=== PATIENT | male | born 1945 | race Caucasian/White ===

== ENCOUNTER 2023-08-10 15:12 | Inpatient (IN) | payer MEDICARE, OTHER, SELFPAY ==
[2023-08-10] VITALS (9 sets, daily range): BP systolic 120–182; BP diastolic 87–110; BMI 28.0; BMI 27.4
[2023-08-10 11:27] LABS: % Basophils 0.9 % (0-2); % Eosinophils 2.7 % (0-6); % Immature Granulocytes 0.2 % (0-0.5); % Lymphocytes 22.4 % (20.5-51.1); % Monocytes 7.3 % (1.7-9.3); % Neutrophils 66.5 % (42.2-75.2); Absolute Basophils 0.1 10^3/uL (0-0.2); Absolute Eosinophils 0.2 10^3/uL (0-0.7); Absolute Lymphocytes 1.3 10^3/uL (1.2-3.4); Absolute Monocytes 0.4 10^3/uL (0.1-0.6); Absolute Neutrophils 3.9 10^3/uL (1.4-6.5); Hemoglobin 13.3 g/dL (13.0-18.0); Mean Corp Hgb Conc. 34.1 g/dL (33.0-37.0); Mean Corpuscular Hgb 28.8 pg (27.0-31.0); Mean Corpuscular Volume 84.4 fL (80.0-94.0); Nucleated Red Blood Cells % 0 % (-); Platelet Count 178 10^3/uL (130-400); Red Blood Cell Count 4.62 10^6/uL (4.70-6.10); Red Cell Dist. Width 13.3 % (11.5-14.5); White Blood Cell Count 5.9 10^3/uL (4.8-10.8)
--- NOTE | 2023-08-10 11:30 | ED.CVA ---
History of Present Illness
General
Chief Complaint: CVA/TIA Symptoms
Source: patient and spouse
Exam Limitations: none
Time Seen by Provider: 08/10/23 11:11
Nursing documentation reviewed up to this point in time: agreed with
Onset of Stroke Symptoms
Onset of symptoms known: No
Time pt last seen normal is known: No
Travel History
Have you had any contact with someone who has COVID-19?: No
Do you have any symptoms of coronavirus? Fever > 100 degrees, chills, cough, shortness of breath, sore throat, loss of taste or smell, muscle aches, or headache?: No
History of Present Illness
History of Present Illness:
Patient is a 77-year-old male with past medical history of CVA A-fib pacemaker on Xarelto presents to the ER for evaluation. Patient reports this morning he was having trouble using his cell phone. He was trying to use a counter section cannot
remember how to do so.He called his due to feeling confused. He had no associated headache and denies any associated upper or lower extremity numbness tingling weakness in extremities.
reports the patient has not been himself. She reports 2 nights ago he woke up in the middle of the night and was yelling, very angry.She also has noticed that over the past several months he is having difficulty processing certain things. If
she gives him a sentence or 2 he will often ask for her to repeat it seems difficulty processing what she is telling him to do. In May she notes that his dentist thought he may be jaundiced. Since then he has been seen by family doctor as
well as GI. He had nml US of abdomen.
Past History
Past History
ED Past Medical History: Arrthythmia (Atrial fibrillation), CAD, CVA, GERD, HTN, Hypercholesterolemia, OR and Hypothyroidism
ED Past Surgical History: Orthopedic and Other (Hernia surgery, lipoma of the neck removed< left leg IR procedure Jun)
Social History
Tobacco: Non-smoker
Alcohol: Occasional
Drug: None
Personal:
Living: with family
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
Family History
Family History: Other (n/c)
Review of Systems
Review of Systems
Allergies reviewed?: Yes
All Other Systems: ROS reviewed and negative except as documented in HPI and ROS
Constitutional: Reports no symptoms; Denies fever, fatigue or chills
Respiratory: Reports no symptoms
Cardiac: Reports no symptoms
ABD/GI: Reports no symptoms
Musculoskeletal: Reports no symptoms
Skin: Reports no symptoms
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
Endocrine: Reports no symptoms
Hematologic/Lymphatic: Reports no symptoms
Psychiatric: Reports no symptoms
Phy Exam
General Physical Exam
General Presentation: no apparent distress
General age: appears stated age
General Skin: warm and dry
General Habitus: normal
Course
Orders/Labs/Results
Orders:
Orders
08/10/23 11:14
Electrocardiogram (*1) Urgent
Reason for Study: TIA/Stroke
08/10/23 11:15
EKG- Treatment ONCE
08/10/23 11:16
Complete Blood Count/With Diff Urgent
Comprehensive Metabolic Panel Urgent
Digoxin Urgent
Comment: ADD ON
Troponin I Urgent
08/10/23 11:44
CT Head W/o Iv Contrast Urgent
Comment:
Reason For Exam: acute confusion episode
08/10/23 11:54
Add On- LAB Urgent
Tests Added?: digoxin
08/10/23 14:10
MR Brain W/o & With Contrast Routine
Comment: Tumor or subacute stroke
Reason For Exam: Right frontal and parietal lobe hypodensities
Recent pill cam endoscopy?: No
Abnormal Lab Results
08/10/23
11:16
RBC 4.62 L 10^6/uL
(4.70-6.10)
MPV 11.0 H fL
(7.4-10.4)
Carbon Dioxide 31 H mmol/L
(22-30)
Glucose 103 H mg/dl
(70-99)
Total Bilirubin 2.0 H mg/dl
(0.2-1.3)
Digoxin 0.7 L ng/ml
(0.8-2.0)
08/10/23 11:16
08/10/23 11:16
Vital Signs
Initial and Last Documented VS:
Initial Vital Signs
Temp Pulse Resp BP Pulse Ox
98.4 F 78 16 174/110 99
08/10/23 10:55 08/10/23 10:55 08/10/23 10:55 08/10/23 10:55 08/10/23 10:55
Last Documented Vital Signs
Temp Pulse Resp BP Pulse Ox
98.4 F 66 14 165/98 99
08/10/23 10:55 08/10/23 13:15 08/10/23 13:15 08/10/23 12:17 08/10/23 13:15
MDM/Problems Addressed
Differential Diagnosis Includes:
not limited to: Stroke, cognitive
MDM/Problems Addressed:
Patient is a 77 old male brought to the ER by . Patient reports this morning he was confused while working his cell phone was unable to figure out how to work certain things. also reports that patient 2 nights ago had an episode of
yelling in the middle of the night that was not like off. He also has had intermittent episodes of having difficulty processing things. He does have a history of stroke. He presents awake alert he is oriented. He was aware of his confusion
earlier today. Patient is a known patient of neurology Dr. Rodriguez who evaluated patient here in the ER. We did get CAT scan and CAT scan surprisingly shows new areas of white matter hypoattenuation/edema within the frontal right lobe and parietal
lobe could be subacute infarct with vasogenic edema related to metastatic disease. pt with no history of cancer.
Chronic conditions affecting care:
A-fib pacemaker on Eliquis history of stroke hypertension OR
*Radiology
Radiology exam reviewed: radiology read reviewed
*Pulse Oximetry
Patient hypoxic: no
*EKG
Heart Rate: 61
Rate: normal
Rhythm: a-fib
Ischemia: no ischemia
*Critical Care Note
Total Time (30-74mins, 75-104mins- exclusive of procedures): Not Applicable
Patient Management
Discussion with other providers: Applique Cutter (DR Rodriguez in to see pt )
ED Attending Note
-
Portions of this chart may have been created with voice recognition software.� Occasional wrong word or��sound alike� substitutions may have occurred due to the inherent limitations of voice recognition software.
Discharge Plan
Departure
Patient Disposition: Admit
Date of Disposition: 08/10/23
Time of Disposition: 14:22
Admit to: Med/Surg
Admit to doctor: Ted
Presentation/result/management discussed w/ accepting MD/DO: Hospitalist
Patient with high blood pressure during this ER visit?: Yes
Condition: Fair
Covid-19: Not Applicable
Discharge Problem:
Confusion
Prescriptions:
No Action
levothyroxine 150 MCG tablet
175 mcg PO DAILY AT 0700
atorvastatin 20 MG tablet
20 mg PO HS
pantoprazole 40 MG tablet,delayed release (/EC)
40 mg PO DAILY
lisinopril 10 MG tablet
40 mg PO DAILY
finasteride 5 MG tablet
5 mg PO DAILY
cholecalciferol (vitamin D3) 2,000 UNITS tablet
2,000 units PO HS
Bifidobacterium infantis [Align] 4 MG capsule
4 mg PO DAILY
rivaroxaban [Xarelto] 20 MG tablet
20 mg PO HS
doxazosin 1 MG tablet
1 mg PO HS
sotalol 80 MG tablet
80 mg PO BID
fluticasone furoate-vilanterol [Breo Ellipta] 1 EACH blister with device
1 puff inhalation DAILY
vit C-vit L-Ry-Vi-lutein-zeax [ICaps AREDS2 (copper citrate)] 1 EACH tablet
1 ea PO BID
amlodipine [Norvasc] 5 MG tablet
5 mg PO BID
cyanocobalamin (vitamin B-12) 2,500 MCG tablet,chewable
2,500 mcg PO DAILY Qty: 30 0RF
Referrals:
Kiran Valderrama DO [Family Provider] -
Interventions
Interventions:
*Risk Screen - Suicide Last Done: 08/10/23 10:55
*General Assessment Last Done: 08/10/23 10:55
*Neglect/Abuse Screening Last Done: 08/10/23 10:55
ED- Fall Risk Assessment Last Done: 08/10/23 11:22
*ED COVID-19 Vaccine History Last Done: 08/10/23 10:55
ED- Pulmonary Assessment Last Done: 08/10/23 11:19
ED- Neurological Assessment Last Done: 08/10/23 11:19
ED- Cardiac Assessment Last Done: 08/10/23 11:19
[2023-08-10 11:39] LABS: ALT (SGPT) 21 U/L (0-50); AST (SGOT) 31 U/L (17-59); Albumin 4.4 g/dl (3.5-5.0); Alkaline Phosphatase 77 U/L (38-126); Blood Urea Nitrogen 20 mg/dl (9-20); Calcium 9.5 mg/dl (8.4-10.2); Carbon Dioxide 31 mmol/L (22-30); Chloride 101 mmol/L (98-107); Estimated Creatinine Clearance 71 ml/min; Glucose 103 mg/dl (70-99); Potassium 3.6 mmol/L (3.5-5.1); Sodium 139 mmol/L (135-145); Total Protein 6.9 g/dl (6.3-8.2); eGFR > 60.00
[2023-08-10 11:48] LABS: Troponin I 0.015 ng/ml
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
[2023-08-10 12:29] LABS: Digoxin 0.7 ng/ml (0.8-2.0)
--- NOTE | 2023-08-10 14:51 | HPS.HSE ---
Family Physician
-
Family Physician: Kiran Valderrama
Chief Complaint
-
Confusion
History of Present Illness
77-year-old male with past medical history of atrial fibrillation, embolic stroke, hyperlipidemia, hypothyroidism, GERD, chronic headache, BPH came to the hospital with increasing confusion and difficulty operating task that he used to before. Per
at bedside patient also had some odd behavior with agitation couple nights ago. Patient denies any chest pain, shortness of breath. Denies any abdominal pain, nausea, vomiting, diarrhea, constipation. Patient does have history of headache
however now it appears the frequency is a lot more however lately from past few days it is getting better. Denies any fever/chills. Reports compliance with all his medications.
Medical History
Past Medical History
Past Medical History: Reports Arrhythmia (A-fib), CAD, GERD, HTN, Hypercholesterolemia and Hypothyroidism
Past Surgical History: Reports Orthopedic and Other (Hernia surgery)
Social History
Tobacco: Non-smoker
Alcohol: None
Drug: None
Family History
Family History: Not pertinent
Allergies / Home Medications
Allergies reflects when Allergies were last updated in [facility].
Home Medications with original date entered in [facility]
Allergy/Medication List:
Allergies
Allergy/AdvReac Type Severity Reaction Status Date / Time
adhesive tape Allergy Rash Verified 08/10/23 10:56
Home Medications
finasteride 5 mg tablet 5 mg PO HS Urinary issue 06/13/19
pantoprazole 40 mg tablet,delayed release 40 mg PO DAILY Gastrointestinal issue 06/13/19
rivaroxaban 20 mg tablet (Xarelto) 20 mg PO QPM Blood clot prevention/tx 12/19/19
acetaminophen 500 mg tablet (Tylenol Extra Strength) 1,000 mg PO DAILYPRN PRN mild pain 08/10/23
atorvastatin 40 mg tablet 40 mg PO HS 08/10/23
cholecalciferol (vitamin D3) 50 mcg (2,000 unit) tablet 50 mcg PO DAILY 08/10/23
cyanocobalamin (vitamin B-12) 1 tab PO HS 08/10/23
digoxin 125 mcg (0.125 mg) tablet 125 mcg PO DAILY 08/10/23
furosemide 20 mg tablet 20 mg PO DAILY 08/10/23
levothyroxine 200 mcg tablet 200 mcg PO DAILY 08/10/23
lisinopril 40 mg tablet 40 mg PO DAILY 08/10/23
metoprolol succinate 50 mg tablet,extended release 24 hr 50 mg PO BID 08/10/23
mupirocin 2 % topical ointment 1 applic topical BID apply to forehead 08/10/23
peg 400-propylene glycol (PF) 0.4 %-0.3 % eye drops in a dropperette (Systane (PF)) 1 drp BOTH EYES BIDPRN PRN dry eyes 08/10/23
rimegepant 75 mg disintegrating tablet (Nurtec ODT) 75 mg PO DAILYPRN PRN migraine 08/10/23
tamsulosin 0.4 mg capsule 0.4 mg PO HS 08/10/23
vit C 250 mg-vit E 90 mg-zinc 40 mg-copper 1 [id number] capsule (PreserVision AREDS-2) 1 tab PO BID 08/10/23
Review of Systems
-
History Source: Patient
A 12 point ROS was completed and negative except as noted: Yes
Neurological: Reports Headache
Physical Exam
Vital Signs
Vital Signs
Temp Pulse Resp BP Pulse Ox
98.4 F 66 14 165/98 99
08/10/23 10:55 08/10/23 13:15 08/10/23 13:15 08/10/23 12:17 08/10/23 13:15
Physical Exam
General: Well Nourished and No Apparent Distress
HEENT: Anicteric and Moist mucous membranes
Respiratory: Clear; No Wheezes
Cardiac: S1/S2 and Irregular Rhythm
Breast: Deferred by me
GI: Soft, Non Tender and Non Distended
Rectal: Deferred by Provider
Genito-urinary: Deferred by me
Musculoskeletal: No Edema
Neuro: Awake, Alert, Oriented and AO x 3
Psych: Calm and Intact Judgment/Insight
Laboratory Results
-
08/10/23 11:16
08/10/23 11:16
Laboratory Results
Total Bilirubin 2.0 mg/dl (0.2-1.3) H 08/10/23 11:16
AST 31 U/L (17-59) 08/10/23 11:16
ALT 21 U/L (0-50) 08/10/23 11:16
Alkaline Phosphatase 77 U/L (38-126) 08/10/23 11:16
Troponin I 0.015 ng/ml 08/10/23 11:16
Data Reviewed
-
CT Scan: Report Reviewed by me, Discussed with Patient and Discussed with Family
Lab Data: Labs Reviewed by me, Discussed with Patient and Discussed with Family
Impression/Plan
-
Confusion likely secondary to subacute CVA with vasogenic edema, concern for malignancy
CT noted
MRI pending
Neurology following
no hx of malignancy; per patient he is good with his cancer screening
check lipid profile,A1c
speech,PT/OT
cw neuro checks
goal normotension
History of paroxysmal A-fib
Continue metoprolol, digoxin
Xarelto
History of hypertension
Continue lisinopril, metoprolol
Hydralazine as needed
History of GERD
PPI
Multiple small lung nodules on past CT scan
f/u outpatient
History of hypothyroidism
Continue with Synthroid
History of BPH
Continue with tamsulosin
DVT prophylaxis
Xarelto
Full code
[2023-08-10] MEDS: XARELTO 20 MG PO (18:06)
--- NOTE | 2023-08-10 19:47 | PTCARENOTE ---
1720 Pt received from the ED via stretcher [id number]. Pt accompanied by son and ED staff. Pt ambulated from stretcher to standing scale with steady gait. Pt oriented to staff and environment. Personal items and call light within reach. All needs
met.
[2023-08-10] MEDS: PROSCAR 5 MG PO (20:33)
[2023-08-10] MEDS: VITAMIN B-12 1000 MCG PO (20:33)
[2023-08-10] MEDS: LIPITOR 40 MG PO (20:33)
[2023-08-10] MEDS: OCUVITE SOFTGEL 1 CAP PO (20:33)
[2023-08-10] MEDS: TOPROL XL 50 MG PO (20:33)
[2023-08-10] MEDS: FLOMAX 0.400000000000000022 MG PO (20:34)
[2023-08-10] MEDS: MELATONIN 5 MG PO (21:15)
[2023-08-11] VITALS (7 sets, daily range): BP systolic 143–168; BP diastolic 75–103
[2023-08-11] MEDS: SYNTHROID 200 MCG PO (05:46)
[2023-08-11] MEDS: TYLENOL 1000 MG PO (06:18)
[2023-08-11 06:27] LABS: % Basophils 0.7 % (0-2); % Eosinophils 3.6 % (0-6); % Immature Granulocytes 0.4 % (0-0.5); % Lymphocytes 30.8 % (20.5-51.1); % Monocytes 8.7 % (1.7-9.3); % Neutrophils 55.8 % (42.2-75.2); Absolute Eosinophils 0.2 10^3/uL (0-0.7); Absolute Lymphocytes 1.7 10^3/uL (1.2-3.4); Absolute Monocytes 0.5 10^3/uL (0.1-0.6); Absolute Neutrophils 3.1 10^3/uL (1.4-6.5); Hematocrit 35.7 % (39.0-52.0); Hemoglobin 12.3 g/dL (13.0-18.0); Mean Corp Hgb Conc. 34.5 g/dL (33.0-37.0); Mean Corpuscular Hgb 29.1 pg (27.0-31.0); Mean Corpuscular Volume 84.4 fL (80.0-94.0); Nucleated Red Blood Cells % 0 % (-); Platelet Count 160 10^3/uL (130-400); Red Blood Cell Count 4.23 10^6/uL (4.70-6.10); Red Cell Dist. Width 13.2 % (11.5-14.5); White Blood Cell Count 5.5 10^3/uL (4.8-10.8)
[2023-08-11 06:47] LABS: ALT (SGPT) 18 U/L (0-50); AST (SGOT) 27 U/L (17-59); Albumin 3.6 g/dl (3.5-5.0); Alkaline Phosphatase 70 U/L (38-126); Blood Urea Nitrogen 19 mg/dl (9-20); Calcium 9.7 mg/dl (8.4-10.2); Carbon Dioxide 32 mmol/L (22-30); Chloride 101 mmol/L (98-107); Estimated Creatinine Clearance 79 ml/min; Glucose 109 mg/dl (70-99); HDL Cholesterol 27 mg/dl; LDL Cholesterol, Calculated 35 mg/dl; Potassium 3.7 mmol/L (3.5-5.1); Sodium 141 mmol/L (135-145); Total Cholesterol 79 mg/dl (50-199); Total Protein 6.2 g/dl (6.3-8.2); Triglyceride 89 mg/dl (10-149); Very Low Density Lipoprotein 17 mg/dl (0-30); eGFR > 60.00
--- NOTE | 2023-08-11 08:19 | W.PN.NEURO.1 ---
Addendum entered and electronically signed by Ricardo Rodriguez MD 08/11/23 14:29:
Reviewed the MRI MRI images as well as the report.
There are hyperintensities on T2 and FLAIR more in the white matter on the right frontal lobe right parietal lobe as well as to a lesser extent the left parietal lobe. There is hyperintensity on DWI and ADC. Small amount of chronic microhemorrhage
in the right frontal lobe and the right parietal lobe slightly increased burden compared to previous MRI in February 2023. There is no abnormal contrast-enhancement or discrete masses or obvious neoplasm seen.
No narrowing, stenosis or abnormal beading of the MRA of the head and normal vessels on the MRA of the neck.
Imaging findings are not consistent with ischemic stroke and unlikely to be neoplastic process.
Patient has had elevated blood pressure but these have not been severe and the distribution of imaging abnormalities lead me to believe that this is less likely to be PRES.
Assessment
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 He has had chronic headaches for several months now and now with some mild behavioral changes
which would be common manifestations of the disorder. Previous ESR testing was negative, patient has no history of cancer and is a non-smoker, and does not have any other obvious manifestations of an autoimmune disease such as rheumatologic disease
or vasculitis.
Recommendations
-Hold Xarelto anticipating will need to be off the medication for 48 hours before pursuing lumbar puncture
-With lumbar puncture check CSF protein cell count glucose, Gram stain culture, PCR meningitis/encephalitis panel
-Check CT chest abdomen pelvis with contrast, unless there is an abnormality on the study which appears extremely convincing for neoplasm, I would operate on the assumption that this is not a neoplastic process in the brain
-If lumbar puncture not suggestive of infection plan for 5 days of high dose steroid, 1000 mg methylprednisolone q24 hours and then 50-60 mg Prednisone daily afterwards
-Discussed with patient that after discharge would recommend evaluation by additional vascular neurologist at [facility] for 2nd opinion given complexity and rarity of the suspected disease
-Treating high blood pressure
-Neurologic checks
Discussed with Dr Jean, discussed with patient and his the suspected diagnosis, next steps and answered all questions
Original Note:
Today's Communication / Plan
-
-Await MRI with and without contrast, MRA head and neck, has pacemaker but is MRI compatible given he had an unremarkable MRI brain in February 2023 with pacemaker present
-Check TTE
-Would continue his Xarelto
-Not recommending steroids at this time
-Neurologic checks
Will follow
Neuro Assessment/Plan
Assessment
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
have an unusual behavior change with some irritation a few nights before after planting his well with his .
CT head noncontrast demonstrates hypodensities in the right frontal and parietal lobe that may represent late acute to subacute ischemic infarcts versus neoplasms with associated vasogenic edema. No known history of cancer, non-smoker.
Has had chronic headaches for several months now, normal ESR previously with no features of giant cell arteritis, normal MRI brain with and without contrast in February. These seemed to start with smoke from [employer] last year. Presumed a
primary headache disorder.
Patient has been compliant with Xarelto no missed doses
Lab work with mildly elevated total bilirubin at 2.0
Unremarkable neurologic examination.
Subjective/Objective
Subjective Data
Date of Service: August 11, 2023
Had a headache this morning similar to previous headaches, improved with Tylenol and sleeping, reveiwed the brain imaging, no other new symptoms, no instances of confusion
Objective Data
Vital Signs
Temp Pulse Resp BP Pulse Ox
97.9 F 62 18 149/75 97
08/11/23 07:00 08/11/23 07:00 08/11/23 07:00 08/11/23 07:00 08/11/23 07:00
Lab Results
08/11/23 06:11
08/11/23 06:11
Sodium 141 mmol/L (135-145) 08/11/23 06:11
Potassium 3.7 mmol/L (3.5-5.1) 08/11/23 06:11
BUN 19 mg/dl (9-20) 08/11/23 06:11
Glucose 109 mg/dl (70-99) H 08/11/23 06:11
Calcium 9.7 mg/dl (8.4-10.2) 08/11/23 06:11
LDL Cholesterol, Calc 35 mg/dl 08/11/23 06:11
Patient Allergies
adhesive tape Allergy (Verified 08/10/23 10:56)
Rash
hydrochlorothiazide Allergy (Verified 08/10/23 17:59)
Rash
Review of Systems
-
History Source: Patient
All other systems: Reviewed and negative
Constitutional: No Symptoms
EENT: No Symptoms Reported
Respiratory: No Symptoms
Cardiac: No Symptoms
Abdomen/GI: No Symptoms
Genitourinary: No Symptoms
Musculoskeletal: No Symptoms
Skin: No Symptoms
Neuro: Headache and See existing Neuro Note; Negative Dizzy, Weakness, Numbness, Ataxia or Tremors
Endocrine: No Symptoms
Hematologic / Lymphatic: No Symptoms
Allergy / Immunology: No Symptoms
Physical Exam
-
General: Well Developed, Well Nourished, No Apparent Distress and Comfortable
Eyes: No Ptosis
HEENT: Normocephalic
Neck: No Bruits Bilaterally
Respiratory: Clear to Auscultation
Cardiac: Regular Rhythm
GI: Normal Bowel Sounds
Skin: Unremarkable
Extremities: No Clubbing
Psych: Intact Judgement/Insight; Negative Confused or Agitated
Extended Neurological Exam
Mood & Affect: Mood Unremarkable and Affect Unremarkable
Attention Span & Concentration: Awake, Alert and Interactive
Memory: Unremarkable
Tremor: Hand Tremor Absent
Involuntary Movement: None
Speech: Quality Unremarkable and Quantity Unremarkable; Negative Expressive Aphasia, Receptive Aphasia or Dysarthric
Cranial Nerve II: Left Eye: Pupillary Reactivity Unremarkable, Pupillary Size Unremarkable and Visual George Intact
Cranial Nerve II: Right Eye: Pupillary Reactivity Unremarkable, Pupillary Size Unremarkable and Visual George Intact
Cranial Nerves III, IV, : Extraocular Movement: Extraocular Movement Full in all Directions
Cranial Nerve VII: Facial Symmetry: Normal Facial Symmetry
Cranial Nerve VIII: Hearing: Unremarkable Hearing to Normal Conversational Volume
Muscle Strength, Overall: Full Throughout
Muscle Bulk & Tone: Bulk Unremarkable
Pronator Drift: No Drift in Upper Extremities
Deep Tendon Reflexes: Trace Throughout
Vibration Sensation: Unremarkable
Touch Sensation: Unremarkable
Coordination: [id number] Testing Unremarkable
Babinski Sign: Absent Bilaterally
Gait & Station: Unremarkable Arm Swing, Up from Seated Without Problem and Up from Lying with Difficulty; Negative Wide Based
Data Reviewed
-
CT Head: Report Reviewed and Image Reviewed
MRI Head: Ordered and Pending
MRA Head: Ordered and Pending
MRA Neck: Ordered and Pending
Echocardiogram: Ordered and Pending
Labs: Report Reviewed
[2023-08-11] MEDS: OCUVITE SOFTGEL 1 CAP PO ×2 (08:40→20:57)
[2023-08-11] MEDS: PROTONIX 40 MG PO (08:40)
[2023-08-11] MEDS: LASIX 20 MG PO (08:41)
[2023-08-11] MEDS: VITAMIN D3 (cholecalciferol) 50 MCG PO (08:41)
[2023-08-11] MEDS: ZESTRIL 40 MG PO (08:41)
[2023-08-11] MEDS: TOPROL XL 50 MG PO ×2 (08:42→20:57)
--- NOTE | 2023-08-11 09:55 | W.PN.HOSP.TC ---
Today's Communication/Plan
-
Monitor vital signs and see plan
MRI pending
Continue with Xarelto
PT/OT
Started amlodipine
Assessment / Plan
Assessment / Plan
General: Well Nourished and No Apparent Distress
HEENT: Anicteric and Moist mucous membranes
Respiratory: Clear; No Wheezes
Cardiac: S1/S2 and Irregular Rhythm
GI: Soft, Non Tender and Non Distended
Musculoskeletal: No Edema
Neuro: Awake, Alert, Oriented and AO x 3
Psych: Calm and Intact Judgment/Insight
Confusion likely secondary to subacute CVA with vasogenic edema, concern for malignancy
CT noted
MRI pending
Neurology following; spoke with neurology, if this is a new CVA then would need cardiology eval. 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
no hx of malignancy; per patient he is good with his cancer screening
LDL 35, A1c pending
speech,PT/OT
cw neuro checks
goal normotension
History of paroxysmal A-fib
Continue metoprolol, digoxin
Xarelto
History of hypertension
Continue lisinopril, metoprolol
BP still high; start amlodipine
Hydralazine as needed
SSS s/p pacemaker
hx of [place]
History of apical hypertrophic cardiomyopathy
Restless leg syndrome
History of GERD
PPI
Multiple small lung nodules on past CT scan
f/u outpatient
History of hypothyroidism
Continue with Synthroid
History of BPH
Continue with tamsulosin
Macular degeneration with visual impairment
DVT prophylaxis
Xarelto
Full code
Anticipated Discharge: 24 - 48 hours
Subjective/Interval History
-
Date of Service: August 11, 2023
denies pain
Objective Data
-
Labs:
Laboratory Results
08/11/23
06:11
WBC 5.5
Hgb 12.3 L
Hct 35.7 L
Plt Count 160
Sodium 141
Potassium 3.7
Chloride 101
Carbon Dioxide 32 H
BUN 19
Creatinine 0.9
Glucose 109 H
Calcium 9.7
Total Bilirubin 2.0 H
AST 27
ALT 18
Alkaline Phosphatase 70
Vital Signs:
Vital Signs
Temp Pulse Resp BP Pulse Ox
97.9 F 62 18 149/75 97
08/11/23 07:00 08/11/23 08:41 08/11/23 07:00 08/11/23 08:41 08/11/23 07:00
I&O
08/10/23 08/11/23 08/12/23
06:59 06:59 06:59
Intake Total 480 / 480
Balance 480 / 480
--- NOTE | 2023-08-11 10:05 | PTOTSP ---
ST Evaluation Summary
Pt presents with functional oropharyngeal parameters for safe PO intake of all consistencies; no overt s/s of penetration or aspiration observed at bedside. Pt presents with mild cognitive linguistic deficits characterized by reduced short term
memory and processing that would benefit from a comprehensive [facility] evaluation.
Recommendations:
- Continue with regular solids, thin liquids, and meds as tolerated.
- Comprehensive cognitive linguistic evaluation by [facility] as able.
- Follow up with [facility] as OP after discharge.
[2023-08-11] MEDS: ATIVAN 0.5 MG PO (10:10)
[2023-08-11] MEDS: NORVASC 5 MG PO (11:57)
[2023-08-11] MEDS: LANOXIN 125 MCG PO (12:01)
[2023-08-11 12:23] LABS: Glycohemoglobin (HgbA1c) 5.7 % (4.0-5.6)
[2023-08-11] MEDS: OMNIPAQUE 50 ML PO (15:12)
--- NOTE | 2023-08-11 17:04 | PTCARENOTE ---
BP elevated still. 163/103. Messaged Dr Jean, requested check of manual BP both arms. 148/84 right arm, 150/80 left arm. No new orders.
[2023-08-11] MEDS: LIPITOR 40 MG PO (21:07)
[2023-08-11] MEDS: VITAMIN B-12 1000 MCG PO (21:07)
[2023-08-11] MEDS: FLOMAX 0.400000000000000022 MG PO (21:07)
[2023-08-11] MEDS: PROSCAR 5 MG PO (21:07)
[2023-08-11] MEDS: MELATONIN 5 MG PO (21:07)
[2023-08-12] VITALS (8 sets, daily range): BP systolic 142–173; BP diastolic 82–103; PULSE 64; BMI 27.6
[2023-08-12] MEDS: SYNTHROID 200 MCG PO (06:21)
[2023-08-12 07:14] LABS: % Basophils 0.9 % (0-2); % Eosinophils 2.9 % (0-6); % Immature Granulocytes 0.2 % (0-0.5); % Lymphocytes 23.7 % (20.5-51.1); % Monocytes 7.3 % (1.7-9.3); Absolute Basophils 0.1 10^3/uL (0-0.2); Absolute Eosinophils 0.2 10^3/uL (0-0.7); Absolute Lymphocytes 1.4 10^3/uL (1.2-3.4); Absolute Monocytes 0.4 10^3/uL (0.1-0.6); Absolute Neutrophils 3.8 10^3/uL (1.4-6.5); Hematocrit 36.9 % (39.0-52.0); Hemoglobin 12.6 g/dL (13.0-18.0); Mean Corp Hgb Conc. 34.1 g/dL (33.0-37.0); Mean Corpuscular Hgb 29.3 pg (27.0-31.0); Mean Corpuscular Volume 85.8 fL (80.0-94.0); Mean Platelet Volume 11.2 fL (7.4-10.4); Nucleated Red Blood Cells % 0 % (-); Platelet Count 172 10^3/uL (130-400); Red Cell Dist. Width 13.3 % (11.5-14.5); White Blood Cell Count 5.9 10^3/uL (4.8-10.8)
[2023-08-12 08:01] LABS: ALT (SGPT) 20 U/L (0-50); AST (SGOT) 29 U/L (17-59); Albumin 4.1 g/dl (3.5-5.0); Alkaline Phosphatase 75 U/L (38-126); Blood Urea Nitrogen 18 mg/dl (9-20); Calcium 9.2 mg/dl (8.4-10.2); Carbon Dioxide 29 mmol/L (22-30); Chloride 102 mmol/L (98-107); Estimated Creatinine Clearance 79 ml/min; Glucose 105 mg/dl (70-99); Potassium 3.7 mmol/L (3.5-5.1); Sodium 138 mmol/L (135-145); Total Bilirubin 1.5 mg/dl (0.2-1.3); Total Protein 6.5 g/dl (6.3-8.2); eGFR > 60.00
[2023-08-12 08:54] LABS: HIV Combo Negative (Negative)
--- NOTE | 2023-08-12 09:15 | W.PN.HOSP.TC ---
Today's Communication/Plan
-
.
Assessment / Plan
Assessment / Plan
General: Well Nourished and No Apparent Distress
HEENT: Anicteric and Moist mucous membranes
Respiratory: Clear; No Wheezes
Cardiac: S1/S2 and Irregular Rhythm
GI: Soft, Non Tender and Non Distended
Musculoskeletal: No Edema
Neuro: Awake, Alert, Oriented and AO x 3
Psych: Calm and Intact Judgment/Insight
# Change in mental status
He had confusion. Suspect underlying inflammatory cerebral amyloid angiopathy
CT noted
MRI flare signals in the right frontal lobe right parietal lobe as well as to a lesser extent the left parietal lobe. Small amount of chronic microhemorrhage in the right frontal lobe and the right parietal lobe slightly increased burden compared to
previous MRI in February 2023.
no hx of malignancy; per patient he is good with his cancer screening
LDL 35, A1c pending
speech,PT/OT
cw neuro checks: non focal
Plan for LP after holding AC
CT Chest, abdomen, pelvis: No anatomic evidence to suggest metastatic disease
Appreciate neurology input
History of paroxysmal A-fib
Patient denies chest pain or palpitation.
Echo on showed LVEF 55-60%. Stage III diastolic dysfunction. Mild MR/mild to moderate TR.
Continue metoprolol, digoxin
Xarelto in on hold pending LP
# History of primary hypertension
uncontrolled
added amlodipine
Continue lisinopril, metoprolol
Hydralazine as needed
#SSS s/p pacemaker
#hx of [place]
#History of apical hypertrophic cardiomyopathy
#Restless leg syndrome
#History of GERD
PPI
#Multiple small lung nodules on past CT scan
f/u outpatient
#History of hypothyroidism
Continue with Synthroid
History of BPH
Continue with tamsulosin
Macular degeneration with visual impairment
DVT prophylaxis
Xarelto
Full code
Total time spent to see the patient, examine the patient on the floor, review data and lab results, discuss treatment plan with patient, nursing staff around 55 minutes
Anticipated Discharge: 24 - 48 hours
Subjective/Interval History
-
Date of Service: August 12, 2023
No headache
no confusion
No chest pain or abd pain or sob this morning
Objective Data
-
Labs:
Laboratory Results
08/12/23
06:32
WBC 5.9
Hgb 12.6 L
Hct 36.9 L
Plt Count 172
Sodium 138
Potassium 3.7
Chloride 102
Carbon Dioxide 29
BUN 18
Creatinine 0.9
Glucose 105 H
Calcium 9.2
Total Bilirubin 1.5 H
AST 29
ALT 20
Alkaline Phosphatase 75
Vital Signs:
Vital Signs
Temp Pulse Resp BP Pulse Ox
97.4 F 60 17 161/88 97
08/12/23 07:00 08/12/23 07:00 08/12/23 07:00 08/12/23 07:00 08/12/23 07:00
I&O
08/11/23 08/12/23 08/13/23
06:59 06:59 06:59
Intake Total 480 / 480 960 / 960
Balance 480 / 480 960 / 960
[2023-08-12] MEDS: OCUVITE SOFTGEL 1 CAP PO ×2 (09:22→20:44)
[2023-08-12] MEDS: VITAMIN D3 (cholecalciferol) 50 MCG PO (09:22)
[2023-08-12] MEDS: LASIX 20 MG PO (09:22)
[2023-08-12] MEDS: NORVASC 5 MG PO (09:22)
[2023-08-12] MEDS: ZESTRIL 40 MG PO (09:22)
[2023-08-12] MEDS: TOPROL XL 50 MG PO ×2 (09:22→20:44)
[2023-08-12] MEDS: PROTONIX 40 MG PO (09:22)
[2023-08-12 11:10] LABS: Erythrocyte Sed Rate 6 mm/hour (0-20)
[2023-08-12] MEDS: LANOXIN 125 MCG PO (11:42)
--- NOTE | 2023-08-12 13:24 | CM ---
CM following re: discharge planning.
Reviewed pt's chart, met with pt and pt's spouse at bedside.
Pt is a 77 year old male, admitted with primary dx of Subacute CVA.
Pt reports he lives with spouse in a 2SH, master bedroom and master bathrooms are on 1st floor, has 4 supportive stepchildren and 2 children. Pt described himself as independent in all areas [employer]. No DME, VN or SNF history. Pt expressed his desire to
return back home at discharge.
PT and OT evaluations noted - pt has no skilled PT/OT needs, independent with functional ability.
PCP: Kiran Valderrama
Pharmacy: [facility]
D/C plan: home with no needs. Spouse to transport at discharge.
CM will follow with discharge plan updates as hospitalization progresses
--- NOTE | 2023-08-12 15:19 | W.PN.NEURO.1 ---
Today's Communication / Plan
-
LP when able
hopefully steroids after
Neuro Assessment/Plan
Assessment
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
which would be common manifestations of the disorder.� Previous ESR testing was negative, patient has no history of cancer and is a non-smoker, and does not have any other obvious manifestations of an autoimmune disease such as rheumatologic disease
or vasculitis. CT chest/abdomen/pelvis showed no evidence of no anatomic evidence to suggest metastatic disease.
Plan
Recommendations
-Hold Xarelto for LP
-With lumbar puncture check CSF protein cell count glucose, Gram stain culture, PCR meningitis/encephalitis panel--orders are in, discussed with IR
-If lumbar puncture not suggestive of infection will plan for 5 days of high dose steroid, 1000 mg methylprednisolone q24 hours and then 50-60 mg Prednisone daily afterwards
-check EEG routinely given intermittent episodes of confusion
-Discussed with patient that after discharge would recommend evaluation by additional vascular neurologist at [facility] for 2nd opinion given complexity and rarity of the suspected disease
-Treating high blood pressure
-Neurologic checks
-reviewed with and family friend who is a retired neurologist at bedside
Subjective/Objective
Subjective Data
Date of Service: August 12, 2023
denies any current headache, reports occasional confusion and neck pain
Objective Data
Vital Signs
Temp Pulse Resp BP Pulse Ox
98.5 F 70 17 166/91 97
08/12/23 11:00 08/12/23 11:42 08/12/23 11:00 08/12/23 11:00 08/12/23 11:00
Lab Results
08/12/23 06:32
08/12/23 06:32
Sodium 138 mmol/L (135-145) 08/12/23 06:32
Potassium 3.7 mmol/L (3.5-5.1) 08/12/23 06:32
BUN 18 mg/dl (9-20) 08/12/23 06:32
Glucose 105 mg/dl (70-99) H 08/12/23 06:32
Calcium 9.2 mg/dl (8.4-10.2) 08/12/23 06:32
LDL Cholesterol, Calc 35 mg/dl 08/11/23 06:11
Patient Allergies
adhesive tape Allergy (Verified 08/10/23 10:56)
Rash
hydrochlorothiazide Allergy (Verified 08/10/23 17:59)
Rash
Physical Exam
Extended Neurological Exam
Mood & Affect: Mood Unremarkable and Affect Unremarkable
Memory: Other (vague historian, able to answer some questions in detail and with others did not answer directly)
Tremor: Hand Tremor Absent and Head Tremor Absent
Involuntary Movement: None
Speech: Quality Unremarkable, Quantity Unremarkable and Rate of Production Unremarkable
Cranial Nerves III, IV, : Extraocular Movement: Extraocular Movement Full in all Directions
Cranial Nerve V: Facial Sensation: Facial Sensation Unremarkable to Cold
Cranial Nerve VII: Facial Symmetry: Normal Facial Symmetry
Cranial Nerves IX, X: Palate Movement: Palate Elevation Symmetric
Cranial Nerve XI: Shoulder Shrug: Unremarkable
Cranial Nerve XII: Tongue Protusion: Midline
Muscle Strength, Overall: Full Throughout
Deep Tendon Reflexes: Unremarkable Throughout
Touch Sensation: Unremarkable
Coordination: Other (some mild difficulty with heel to stubbs bilaterally, finger to nose intact)
Babinski Sign: Absent Bilaterally
Gait & Station: Other (deferred)
[2023-08-12] MEDS: APRESOLINE 5 MG IV (18:26)
[2023-08-12] MEDS: FLUSH (NSS) 2 FLUSH IV (18:28)
--- NOTE | 2023-08-12 19:36 | PTCARENOTE ---
Pt requesting private room due to room mate snoring all night. Room was offered but explained he would still have a room mate at some point anyway since there are no private rooms. Pt decided to stay in his current room.
[2023-08-12] MEDS: PROSCAR 5 MG PO (21:30)
[2023-08-12] MEDS: LIPITOR 40 MG PO (21:30)
[2023-08-12] MEDS: MELATONIN 5 MG PO (21:30)
[2023-08-12] MEDS: FLOMAX 0.400000000000000022 MG PO (21:30)
[2023-08-12] MEDS: VITAMIN B-12 1000 MCG PO (21:30)
[2023-08-12] MEDS: TYLENOL 1000 MG PO (21:57)
[2023-08-13 03:28] VITALS: BP 137/74
[2023-08-13 06:00] VITALS: BMI 27.4
[2023-08-13] MEDS: SYNTHROID 200 MCG PO (06:10)
[2023-08-13 07:00] VITALS: BP 134/86
[2023-08-13] MEDS: NORVASC 5 MG PO (09:02)
[2023-08-13] MEDS: PROTONIX 40 MG PO (09:02)
[2023-08-13] MEDS: LASIX 20 MG PO (09:02)
[2023-08-13] MEDS: ZESTRIL 40 MG PO (09:03)
[2023-08-13] MEDS: OCUVITE SOFTGEL 1 CAP PO ×2 (09:05→21:29)
[2023-08-13] MEDS: VITAMIN D3 (cholecalciferol) 50 MCG PO (09:05)
[2023-08-13] MEDS: TOPROL XL 50 MG PO ×2 (09:05→21:29)
[2023-08-13 10:21] VITALS: BP 171/100; BP_SYST 62
--- NOTE | 2023-08-13 10:27 | W.PN.HOSP.TC ---
Today's Communication/Plan
-
.
Assessment / Plan
Assessment / Plan
Physical exam:
General: Well Nourished and No Apparent Distress
HEENT: Anicteric and Moist mucous membranes
Respiratory: Clear; No Wheezes
Cardiac: S1/S2 and Irregular Rhythm
GI: Soft, Non Tender and Non Distended
Musculoskeletal: No Edema
Neuro: Awake, Alert, Oriented and AO x 3
Psych: Calm and Intact Judgment/Insight
# Change in mental status
He denies headache or confusion. He is lucid and alert, followed commands appropriately.
He had confusion. Suspect underlying inflammatory cerebral amyloid angiopathy
CT noted
MRI flare signals in the right frontal lobe right parietal lobe as well as to a lesser extent the left parietal lobe. Small amount of chronic microhemorrhage in the right frontal lobe and the right parietal lobe slightly increased burden compared to
previous MRI in February 2023.
no hx of malignancy; per patient he is good with his cancer screening
LDL 35, A1c pending
speech,PT/OT
cw neuro checks: non focal
d/w IR front desk, plan for LP today. CSF labs were ordered.
CT Chest, abdomen, pelvis: No anatomic evidence to suggest metastatic disease
Appreciate neurology input
History of paroxysmal A-fib
Patient denies chest pain or palpitation.
Echo on showed LVEF 55-60%. Stage III diastolic dysfunction. Mild MR/mild to moderate TR.
Continue metoprolol, digoxin
Xarelto in on hold pending LP
# History of primary hypertension
uncontrolled
added amlodipine
Continue lisinopril, metoprolol
Hydralazine as needed
#SSS s/p pacemaker
#hx of [place]
#History of apical hypertrophic cardiomyopathy
#Restless leg syndrome
#History of GERD
PPI
#Multiple small lung nodules on past CT scan
f/u outpatient
#History of hypothyroidism
Continue with Synthroid
History of BPH
Continue with tamsulosin
# Macular degeneration with visual impairment
DVT prophylaxis
Xarelto
Full code
Total time spent to see the patient, examine the patient on the floor, review data and lab results, discuss treatment plan with patient, nursing staff around 55 minutes
Anticipated Discharge: > 48 hours
Subjective/Interval History
-
Date of Service: August 13, 2023
No headache
No chest pain
No sob
No abd pain
Objective Data
-
Labs:
Laboratory Results
08/13/23
10:10
PT Pending
INR Pending
Vital Signs:
Vital Signs
Temp Pulse Resp BP Pulse Ox
98 F 62 16 171/100 98
08/13/23 10:21 08/13/23 10:21 08/13/23 10:21 08/13/23 10:21 08/13/23 10:21
I&O
08/12/23 08/13/23 08/14/23
06:59 06:59 06:59
Intake Total 960 / 960 1350 / 1350
Balance 960 / 960 1350 / 1350
[2023-08-13 10:31] LABS: INR 1.07; PT 13.8 Sec (11.4-14.6)
[2023-08-13 11:29] VITALS: BP 168/100
[2023-08-13 11:35] VITALS: BP 162/92
[2023-08-13 12:21] LABS: CSF Tube # 1
[2023-08-13 12:22] LABS: CSF Clarity Clear; CSF Color Colorless; Red Cell Count/CSF 4 mm^3; White Cell Count/CSF 2 mm^3 (0-5)
[2023-08-13 12:23] LABS: CSF Color Colorless; CSF Tube # 4; CSF Tube # Clarity Clear; Red Cell Count/CSF 3 mm^3; White Blood Cell Count/CSF 1 mm^3 (0-5)
[2023-08-13 12:32] LABS: Spinal Fluid Glucose 58 mg/dl (40-70); Spinal Fluid Protein 65 mg/dl (12-60)
[2023-08-13] MEDS: LANOXIN 125 MCG PO (12:38)
--- NOTE | 2023-08-13 12:51 | W.PN.NEURO.1 ---
Today's Communication / Plan
-
ivsm
eeg
Neuro Assessment/Plan
Assessment
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
common manifestations of the disorder.� Patient has no history of cancer and is a non-smoker, and does not have any other obvious manifestations of an autoimmune disease such as rheumatologic disease or vasculitis. CT chest/abdomen/pelvis showed no
evidence of no anatomic evidence to suggest metastatic disease. Vascular imaging negative for vasculitis. CSF findings as below. ESR/CRP checked again yesterday and were normal.
Plan
Recommendations
-appreciate IR assistance with LP; CSF shows mild elevation in protein, normal WBC, glucose in keeping with pattern seen in CAA; await remainder of CSF results including: Gram stain culture, PCR meningitis/encephalitis panel
-start 1000 mg methylprednisolone q24 hours x 5 days; and then 50-60 mg Prednisone daily after with taper over 6-12 weeks; will plan to repeat MRI brain in about 4-6 weeks to use this in combination with symptoms to gauge treatment response
-check EEG routinely given intermittent episodes of confusion
-Discussed with patient that after discharge would recommend evaluation by additional vascular neurologist at [facility] for 2nd opinion given complexity and rarity of the suspected disease
-Treating high blood pressure
-Neurologic checks
Subjective/Objective
Subjective Data
Date of Service: August 13, 2023
no new events overnight
Objective Data
Vital Signs
Temp Pulse Resp BP Pulse Ox
98.2 F 66 19 162/92 99
08/13/23 11:35 08/13/23 12:38 08/13/23 11:35 08/13/23 11:35 08/13/23 11:35
Lab Results
08/12/23 06:32
08/12/23 06:32
PT 13.8 Sec (11.4-14.6) 08/13/23 10:10
INR 1.07 08/13/23 10:10
Sodium 138 mmol/L (135-145) 08/12/23 06:32
Potassium 3.7 mmol/L (3.5-5.1) 08/12/23 06:32
BUN 18 mg/dl (9-20) 08/12/23 06:32
Glucose 105 mg/dl (70-99) H 08/12/23 06:32
Calcium 9.2 mg/dl (8.4-10.2) 08/12/23 06:32
LDL Cholesterol, Calc 35 mg/dl 08/11/23 06:11
Patient Allergies
adhesive tape Allergy (Verified 08/10/23 10:56)
Rash
hydrochlorothiazide Allergy (Verified 08/10/23 17:59)
Rash
Physical Exam
-
Mood & Affect: Mood Unremarkable and Affect Unremarkable
Memory: Other better historian today
Tremor: Hand Tremor Absent and Head Tremor Absent
Involuntary Movement: None
Speech: Quality Unremarkable, Quantity Unremarkable and Rate of Production Unremarkable
Cranial Nerves III, IV, : Extraocular Movement: Extraocular Movement Full in all Directions
Cranial Nerve V: Facial Sensation: Facial Sensation Unremarkable to Cold
Cranial Nerve VII: Facial Symmetry: Normal Facial Symmetry
Cranial Nerves IX, X: Palate Movement: Palate Elevation Symmetric
Cranial Nerve XI: Shoulder Shrug: Unremarkable
Cranial Nerve XII: Tongue Protusion: Midline
Muscle Strength, Overall: Full Throughout
Deep Tendon Reflexes: Unremarkable Throughout
Touch Sensation: Unremarkable
Coordination: finger to nose intact
Babinski Sign: Absent Bilaterally
Gait & Station: Other (deferred)
[2023-08-13 15:00] VITALS: BP 169/99
[2023-08-13] MEDS: SOLU-MEDROL 258 MG IV (15:38)
[2023-08-13] MEDS: FLOMAX 0.400000000000000022 MG PO (21:29)
[2023-08-13] MEDS: LIPITOR 40 MG PO (21:29)
[2023-08-13] MEDS: PROSCAR 5 MG PO (21:29)
[2023-08-13] MEDS: MELATONIN 5 MG PO (21:29)
[2023-08-13] MEDS: VITAMIN B-12 1000 MCG PO (21:31)
[2023-08-14 00:48] VITALS: BP 134/83
[2023-08-14 02:08] LABS: ANA, IgG Reflex to HEp-2 None Detected (None Detected)
[2023-08-14] MEDS: SYNTHROID 200 MCG PO (06:01)
[2023-08-14 06:51] LABS: Hematocrit 36.7 % (39.0-52.0); Hemoglobin 12.8 g/dL (13.0-18.0); Mean Corp Hgb Conc. 34.9 g/dL (33.0-37.0); Mean Corpuscular Hgb 28.8 pg (27.0-31.0); Mean Corpuscular Volume 82.7 fL (80.0-94.0); Mean Platelet Volume 11.3 fL (7.4-10.4); Platelet Count 187 10^3/uL (130-400); Red Blood Cell Count 4.44 10^6/uL (4.70-6.10); Red Cell Dist. Width 13.2 % (11.5-14.5); White Blood Cell Count 9.9 10^3/uL (4.8-10.8)
[2023-08-14 07:00] VITALS: BP 151/92
[2023-08-14 07:26] LABS: ALT (SGPT) 21 U/L (0-50); AST (SGOT) 28 U/L (17-59); Albumin 4.2 g/dl (3.5-5.0); Alkaline Phosphatase 82 U/L (38-126); Blood Urea Nitrogen 27 mg/dl (9-20); Calcium 10.2 mg/dl (8.4-10.2); Carbon Dioxide 27 mmol/L (22-30); Chloride 102 mmol/L (98-107); Estimated Creatinine Clearance 65 ml/min; Glucose 165 mg/dl (70-99); Sodium 137 mmol/L (135-145); Total Bilirubin 1.8 mg/dl (0.2-1.3); Total Protein 6.8 g/dl (6.3-8.2); eGFR > 60.00
[2023-08-14 07:27] LABS: Potassium 3.9 mmol/L (3.5-5.1)
--- NOTE | 2023-08-14 08:14 | W.PN.NEURO.1 ---
Today's Communication / Plan
-
-Check EEG
-Continue high-dose steroid IV methylprednisolone 1000 mg day 07/24
-Minimize sedating medications
-Provided sources and names and contacts for second opinion at [facility]
-Monitor blood glucose on the steroids
Will follow
Neuro Assessment/Plan
Assessment
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
common manifestations of the disorder.� Patient has no history of cancer and is a non-smoker, and does not have any other obvious manifestations of an autoimmune disease such as rheumatologic disease or vasculitis. CT chest/abdomen/pelvis showed no
evidence of no anatomic evidence to suggest metastatic disease. Vascular imaging negative for vasculitis. CSF findings as below. ESR/CRP checked again yesterday and were normal.
Subjective/Objective
Subjective Data
Date of Service: August 14, 2023
Patient woke up at night with some disorientation, headaches seem a little better, no new complaints, discussed the plan for treatment
Objective Data
Vital Signs
Temp Pulse Resp BP Pulse Ox
98.1 F 70 17 151/92 96
08/14/23 07:00 08/14/23 07:00 08/14/23 07:00 08/14/23 07:00 08/14/23 07:00
Lab Results
08/14/23 06:14
08/14/23 06:14
PT 13.8 Sec (11.4-14.6) 08/13/23 10:10
INR 1.07 08/13/23 10:10
Sodium 137 mmol/L (135-145) 08/14/23 06:14
Potassium 3.9 mmol/L (3.5-5.1) 08/14/23 06:14
BUN 27 mg/dl (9-20) H 08/14/23 06:14
Glucose 165 mg/dl (70-99) H 08/14/23 06:14
Calcium 10.2 mg/dl (8.4-10.2) 08/14/23 06:14
LDL Cholesterol, Calc 35 mg/dl 08/11/23 06:11
Patient Allergies
adhesive tape Allergy (Verified 08/10/23 10:56)
Rash
hydrochlorothiazide Allergy (Verified 08/10/23 17:59)
Rash
Review of Systems
-
History Source: Patient
All other systems: Reviewed and negative
Constitutional: No Symptoms
EENT: No Symptoms Reported
Respiratory: No Symptoms
Cardiac: No Symptoms
Abdomen/GI: No Symptoms
Genitourinary: No Symptoms
Musculoskeletal: No Symptoms
Skin: No Symptoms
Neuro: See existing Neuro Note
Endocrine: No Symptoms
Hematologic / Lymphatic: No Symptoms
Allergy / Immunology: No Symptoms
Physical Exam
-
General: Comfortable
Eyes: No Ptosis
HEENT: Normocephalic
Neck: No Bruits Bilaterally
Respiratory: Clear to Auscultation
Cardiac: Regular Rhythm
GI: Normal Bowel Sounds
Skin: Unremarkable
Extremities: No Clubbing
Psych: Intact Judgement/Insight; Negative Confused or Agitated
Extended Neurological Exam
Mood & Affect: Mood Unremarkable and Affect Unremarkable
Attention Span & Concentration: Awake, Alert, Interactive and No Difficulty with 2 Step Request
Memory: Unremarkable
Tremor: Hand Tremor Absent
Involuntary Movement: None
Speech: Quality Unremarkable and Quantity Unremarkable; Negative Expressive Aphasia, Receptive Aphasia or Dysarthric
Cranial Nerve II: Left Eye: Pupillary Reactivity Unremarkable and Pupillary Size Unremarkable
Cranial Nerve II: Right Eye: Pupillary Reactivity Unremarkable and Pupillary Size Unremarkable
Cranial Nerves III, IV, : Extraocular Movement: Extraocular Movement Full in all Directions
Cranial Nerve VII: Facial Symmetry: Normal Facial Symmetry
Muscle Strength, Overall: Full Throughout
Pronator Drift: No Drift in Upper Extremities
Deep Tendon Reflexes: Trace Throughout
Touch Sensation: Unremarkable
Babinski Sign: Absent Bilaterally
Data Reviewed
-
MRI Head: Report Reviewed and Image Reviewed
EEG: Ordered and Pending
Labs: Report Reviewed
[2023-08-14] MEDS: VITAMIN D3 (cholecalciferol) 50 MCG PO (08:24)
[2023-08-14] MEDS: OCUVITE SOFTGEL 1 CAP PO ×2 (08:24→21:08)
[2023-08-14] MEDS: NORVASC 5 MG PO (08:24)
[2023-08-14] MEDS: PROTONIX 40 MG PO (08:24)
[2023-08-14] MEDS: LASIX 20 MG PO (08:24)
[2023-08-14] MEDS: ZESTRIL 40 MG PO (08:24)
[2023-08-14] MEDS: TOPROL XL 50 MG PO ×2 (08:24→21:07)
--- NOTE | 2023-08-14 11:54 | W.PN.HOSP.TC ---
Today's Communication/Plan
-
Monitor vitals
see Plan
Continue with IV steroids
Restart Xarelto
Increase amlodipine to 10 mg
Assessment / Plan
Assessment / Plan
Physical exam:
General: Well Nourished and No Apparent Distress
HEENT: Anicteric and Moist mucous membranes
Respiratory: Clear; No Wheezes
Cardiac: S1/S2 and Irregular Rhythm
GI: Soft, Non Tender and Non Distended
Musculoskeletal: No Edema
Neuro: Awake, Alert, Oriented and AO x 3
Psych: Calm and Intact Judgment/Insight
# Change in mental status
He denies headache or confusion. He is lucid and alert, followed commands appropriately.
He had confusion. Suspect underlying inflammatory cerebral amyloid angiopathy
CT noted
MRI flare signals in the right frontal lobe right parietal lobe as well as to a lesser extent the left parietal lobe. Small amount of chronic microhemorrhage in the right frontal lobe and the right parietal lobe slightly increased burden compared to
previous MRI in February 2023.
no hx of malignancy; per patient he is good with his cancer screening
LDL 35, A1c 5.7, prediabetes
speech,PT/OT
cw neuro checks: non focal
s/p LP 08/13; follow studies; CSF with mild elevation in protein, normal WBC, glucose. Started on high-dose steroids
CT Chest, abdomen, pelvis: No anatomic evidence to suggest metastatic disease
Appreciate neurology input
History of paroxysmal A-fib
Patient denies chest pain or palpitation.
Echo on showed LVEF 55-60%. Stage III diastolic dysfunction. Mild MR/mild to moderate TR.
Continue metoprolol, digoxin
Xarelto restarted
# History of primary hypertension
uncontrolled
added amlodipine, increase to 10mg
Continue lisinopril, metoprolol
Hydralazine as needed
#SSS s/p pacemaker
#hx of [place]
#History of apical hypertrophic cardiomyopathy
#Restless leg syndrome
#History of GERD
PPI
#Multiple small lung nodules on past CT scan
f/u outpatient
#History of hypothyroidism
Continue with Synthroid
History of BPH
Continue with tamsulosin
# Macular degeneration with visual impairment
DVT prophylaxis
Xarelto
Full code
Total time spent to see the patient, examine the patient on the floor, review data and lab results, discuss treatment plan with patient, nursing staff around 53 minutes
Anticipated Discharge: > 48 hours
Subjective/Interval History
-
Date of Service: August 14, 2023
denies headache
Objective Data
-
Labs:
Laboratory Results
08/14/23
06:14
WBC 9.9
Hgb 12.8 L
Hct 36.7 L
Plt Count 187
Sodium 137
Potassium 3.9
Chloride 102
Carbon Dioxide 27
BUN 27 H
Creatinine 1.1
Glucose 165 H
Calcium 10.2
Total Bilirubin 1.8 H
AST 28
ALT 21
Alkaline Phosphatase 82
Vital Signs:
Vital Signs
Temp Pulse Resp BP Pulse Ox
98.1 F 70 17 151/92 96
08/14/23 07:00 08/14/23 07:00 08/14/23 07:00 08/14/23 07:00 08/14/23 08:30
I&O
08/13/23 08/14/23 08/15/23
06:59 06:59 06:59
Intake Total 1350 / 1350 240 / 240
Balance 1350 / 1350 240 / 240
[2023-08-14] MEDS: LANOXIN 125 MCG PO (12:36)
[2023-08-14] MEDS: SOLU-MEDROL 258 MG IV (12:36)
[2023-08-14] MEDS: XARELTO 20 MG PO (12:37)
[2023-08-14 14:56] LABS: Myeloperoxidase Antibody 0 AU/mL (0-19); Serine Protease-3, IgG 0 AU/mL (0-19)
[2023-08-14 15:30] VITALS: BP 131/78
--- NOTE | 2023-08-14 17:18 | EEG.RPT ---
Electroencephalogram Report
Recording
Date of EE08/14/23
Type of EEG: Routine
Length of EEG recordin minutes
Done with Video Recording: Yes
Patient Status: Inpatient
Recording Conditions: Awake, Drowsy and Asleep
Hyperventilation Performed: Yes
Photic Stimulation Performed: Yes
Report
GREATER THAN 1 HOUR EEG INTERPRETATION:
Unremarkable EEG for age
CLINICAL CORRELATION:
A normal EEG does not rule out a diagnosis of epilepsy. If clinical suspicion for seizure persists, a prolonged recording may be warranted.
Clinical correlation is advised.
METHODS:
A 21 channel digitized electroencephalogram (EEG) was performed using the 10/20 international system of electrode placement and one-lead of ECG recorded. The [employer] quantitative EEG system was utilized.
ELECTROENCEPHALOGRAPHER IMPRESSION(S):
Quality of study
Good
Background
There was an unremarkable anterior-posterior voltage gradient of alpha frequency.
With eye opening the background activity changed to a low voltage mixture of frequencies.
There were no significant asymmetries of background activity noted.
Sleep
Drowsiness present
Stage 1 present
Stage 2 present
Hyperventilation
No activation
Photic Stimulation
No activation
ECG
Normal sinus rhythm
[2023-08-14] MEDS: PROSCAR 5 MG PO (21:07)
[2023-08-14] MEDS: FLOMAX 0.400000000000000022 MG PO (21:07)
[2023-08-14] MEDS: LIPITOR 40 MG PO (21:07)
[2023-08-14] MEDS: VITAMIN B-12 1000 MCG PO (21:07)
[2023-08-14] MEDS: MELATONIN 5 MG PO (21:08)
[2023-08-14 23:10] VITALS: BP 152/78
[2023-08-15 06:00] VITALS: BMI 27.5
[2023-08-15] MEDS: SYNTHROID 200 MCG PO (06:05)
[2023-08-15 07:41] VITALS: BP 137/80
[2023-08-15 07:48] LABS: % Basophils 0.1 % (0-2); % Immature Granulocytes 0.8 % (0-0.5); % Monocytes 2.3 % (1.7-9.3); % Neutrophils 92.8 % (42.2-75.2); Absolute Immature Granulocytes 0.1 10^3/uL (0-0.05); Absolute Lymphocytes 0.7 10^3/uL (1.2-3.4); Absolute Monocytes 0.4 10^3/uL (0.1-0.6); Absolute Neutrophils 16.9 10^3/uL (1.4-6.5); Hematocrit 35.9 % (39.0-52.0); Hemoglobin 12.6 g/dL (13.0-18.0); Mean Corp Hgb Conc. 35.1 g/dL (33.0-37.0); Mean Corpuscular Hgb 29.6 pg (27.0-31.0); Mean Corpuscular Volume 84.3 fL (80.0-94.0); Mean Platelet Volume 11.5 fL (7.4-10.4); Nucleated Red Blood Cells % 0 % (-); Platelet Count 182 10^3/uL (130-400); Red Blood Cell Count 4.26 10^6/uL (4.70-6.10); Red Cell Dist. Width 13.6 % (11.5-14.5); White Blood Cell Count 18.2 10^3/uL (4.8-10.8)
[2023-08-15] MEDS: VITAMIN D3 (cholecalciferol) 50 MCG PO (07:58)
[2023-08-15] MEDS: PROTONIX 40 MG PO (07:58)
[2023-08-15] MEDS: LASIX 20 MG PO (07:58)
[2023-08-15] MEDS: OCUVITE SOFTGEL 1 CAP PO ×2 (07:58→21:00)
[2023-08-15] MEDS: NORVASC 10 MG PO (07:58)
[2023-08-15] MEDS: TOPROL XL 50 MG PO ×2 (07:59→21:00)
[2023-08-15] MEDS: ZESTRIL 40 MG PO (07:59)
--- NOTE | 2023-08-15 08:21 | W.PN.NEURO.1 ---
Addendum entered and electronically signed by Bhupendra Gomes MD 08/15/23 12:36:
Studies reviewed.
I have personally examined the patient. I reviewed and agree with the COLLECTION CLERK's Note.
My addenda:
Awake, alert, interactive. No acute distress.
Speech intact.
Follows 2-step requests w/o difficulty. No tremor.
Extra-ocular movements grossly intact.
Facial movements full and symmetric. Hearing intact to normal conversational volume.
Normal UE movements bilaterally.
Neck: full ROM.
Chest: no dyspnea
Heart: no JVD
Ext: (-) Clubbing, (-) Cyanosis, (-) Edema
IMPRESSIONS/RECOMMENDATIONS:
Abrupt onset of presumed inflammatory cerebral amyloid angiopathy suggested best by MRI imaging of the brain demonstrating changes which spare the U fibers of the cortex
Cerebral edema�is not yet confirmed but remains a suspected condition
Continue high-dose steroids with goal of 5 days
After high-dose IV steroids, provide prednisone 60 mg
Patient will require repeated MRI of brain to determine changes
Check either amyloid SPECT scan or amyloid protein 42/40 as outpatient to determine if secondary to Alzheimer's protein deposition
Patient may require eventual brain biopsy to better determine diagnosis
D/W patient / family / nursing
All questions answered.
Will continue to follow patient.
Original Note:
Today's Communication / Plan
-
.
Neuro Assessment/Plan
Assessment
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
behavioral changes which would be common manifestations of the disorder.� Patient has no history of cancer and is a non-smoker, and does not have any other obvious manifestations of an autoimmune disease such as rheumatologic disease or vasculitis.
CT chest/abdomen/pelvis showed no evidence of no anatomic evidence to suggest metastatic disease. Vascular imaging negative for vasculitis. CSF findings as below. ESR/CRP checked again and were normal. EEG 08/14/23 unremarkable.
Plan
-Continue 1000 mg methylprednisolone q24 hours x 5 days (Today 08/15/23 is day 3/5); and then 50-60 mg Prednisone daily after with taper over 6-12 weeks; will plan to repeat MRI brain in about 4-6 weeks to use this in combination with symptoms to
gauge treatment response. Monitor blood glucose while on steroids.
-Discussed with nursing attempt to move patient to a window bed today for sunlight exposure to help reduce delirium.
-Discussed with patient that after discharge would recommend evaluation by additional vascular neurologist at [facility] for 2nd opinion given complexity and rarity of the suspected disease
-Treating high blood pressure, goal normotension.
-Neurologic checks
-Consider biomarker testing for Alzheimer's disease as an outpatient.
-Will continue to follow.
Subjective/Objective
Subjective Data
Date of Service: August 15, 2023
No acute events overnight. He reports feeling slightly dizzy and disoriented starting this morning. He describes the dizziness as light-headedness and it is unchanged by position or movement, it is relatively constant. He also reports difficulty
typing on his phone/finding letters for texting. He denies any headache, vision changes, speech difficulty, swallowing difficulty, chest pain, palpitations, and shortness of breath.
Objective Data
Vital Signs
Temp Pulse Resp BP Pulse Ox
97.7 F 66 18 137/80 95
08/15/23 07:41 08/15/23 07:41 08/15/23 07:41 08/15/23 07:41 08/15/23 07:41
Lab Results
08/15/23 07:09
PT 13.8 Sec (11.4-14.6) 08/13/23 10:10
INR 1.07 08/13/23 10:10
Sodium 137 mmol/L (135-145) 08/14/23 06:14
Potassium 3.9 mmol/L (3.5-5.1) 08/14/23 06:14
BUN 27 mg/dl (9-20) H 08/14/23 06:14
Glucose 165 mg/dl (70-99) H 08/14/23 06:14
Calcium 10.2 mg/dl (8.4-10.2) 08/14/23 06:14
LDL Cholesterol, Calc 35 mg/dl 08/11/23 06:11
Patient Allergies
adhesive tape Allergy (Verified 08/10/23 10:56)
Rash
hydrochlorothiazide Allergy (Verified 08/10/23 17:59)
Rash
Review of Systems
-
History Source: Patient
EENT: Negative Decreased Vision or Swallowing Difficulty
Respiratory: Negative Cough or Trouble Breathing
Cardiac: Negative Chest Pain or Palpitations
Abdomen/GI: Negative Nausea
Genitourinary: Negative Difficulty Voiding
Neuro: Dizzy; Negative Headache, Weakness, Numbness, Ataxia, Tremors or Speech Problem
Physical Exam
-
General: No Apparent Distress
Eyes: No Ptosis and PERRLA
HEENT: Normocephalic and Atraumatic
Neck: Full Range of Motion
Respiratory: No Dyspnea
GI: Non-distended
Extremities: No Clubbing, No Cyanosis and No Edema
Psych: Unremarkable
Extended Neurological Exam
Mood & Affect: Mood Unremarkable and Affect Unremarkable
Attention Span & Concentration: Awake, Alert and Interactive
Memory: Unremarkable (AAOx3) and Able to Recall
Tremor: Hand Tremor Absent and Head Tremor Absent
Involuntary Movement: None
Speech: Quality Unremarkable, Quantity Unremarkable and Rate of Production Unremarkable
Cranial Nerve II: Left Eye: Pupillary Reactivity Unremarkable, Pupillary Size Unremarkable and Visual George Grossly Intact
Cranial Nerve II: Right Eye: Pupillary Reactivity Unremarkable, Pupillary Size Unremarkable and Visual George Grossly Intact
Cranial Nerves III, IV, : Extraocular Movement: Extraocular Movement Full in all Directions
Cranial Nerve VII: Facial Symmetry: Normal Facial Symmetry
Cranial Nerve VIII: Hearing: Unremarkable Hearing to Normal Conversational Volume
Cranial Nerves IX, X: Palate Movement: Palate Elevation Symmetric
Cranial Nerve XI: Shoulder Shrug: Unremarkable
Cranial Nerve XII: Tongue Protusion: Midline
Muscle Strength, Overall: Full Throughout
Muscle Bulk & Tone: Bulk Unremarkable and Tone Unremarkable
Pronator Drift: No Drift in Upper Extremities and No Drift in Lower Extremities
Coordination: [id number] Testing Unremarkable
Gait & Station: Up from Seated Without Problem and Romberg Test Negative
Data Reviewed
-
MRI Head: Report Reviewed and Image Reviewed
MRA Head: Report Reviewed and Image Reviewed
MRA Neck: Report Reviewed and Image Reviewed
Medical Test Reports: Report Reviewed (lumbar puncture)
Labs: Report Reviewed
Reviewed with: Physician and Patient
Medications
-
Active Medications
Generic Name Dose Route Start Last Admin
Trade Name Freq PRN Reason Stop Dose Admin
Acetaminophen 1,000 mg 08/10/23 17:22 08/12/23 21:57
Acetaminophen 500 Mg Tablet PO 09/07/23 17:21 1,000 mg
DAILYPRN PRN Administration
mild pain
Acetaminophen 650 mg 08/10/23 17:22
Acetaminophen 650 Mg Rectal Suppository RECTAL 09/07/23 17:21
Q4HPRN PRN
SARMIENTO, mild pain, or temp >100.4F
Acetaminophen 650 mg 08/10/23 17:22
Acetaminophen 325 Mg Tablet PO 09/07/23 17:21
Q4HPRN PRN
SARMIENTO, mild pain, or temp >100.4F
Amlodipine Besylate 10 mg 08/15/23 08:00 08/15/23 07:58
Amlodipine 10 Mg Tablet PO 09/12/23 07:59 10 mg
DAILY MY Administration
Artificial Tears 2 drops 08/10/23 17:57
Artificial Tears Pf (Refresh) 10 Drop Droperette BOTH EYES 09/07/23 17:56
BIDPRN PRN
dry eyes
Atorvastatin Calcium 40 mg 08/10/23 22:00 08/14/23 21:07
Atorvastatin (Lipitor) 40 Mg Tablet PO 09/07/23 21:59 40 mg
HS MY Administration
Cholecalciferol 50 mcg 08/11/23 08:00 08/15/23 07:58
Cholecalciferol (Vitamin D3) 50 Mcg Tablet (2,000 Units) PO 09/08/23 07:59 50 mcg
DAILY MY Administration
Cyanocobalamin 1,000 mcg 08/10/23 22:00 08/14/23 21:07
Cyanocobalamin 1,000 Mcg Tablet PO 09/07/23 21:59 1,000 mcg
HS MY Administration
Digoxin 125 mcg 08/11/23 12:00 08/14/23 12:36
Digoxin 125 Mcg Tablet PO 09/08/23 11:59 125 mcg
NOON MY Administration
Finasteride 5 mg 08/10/23 22:00 08/14/23 21:07
Finasteride 5 Mg Tablet PO 09/07/23 21:59 5 mg
HS MY Administration
Furosemide 20 mg 08/11/23 08:00 08/15/23 07:58
Furosemide 20 Mg Tablet PO 09/08/23 07:59 20 mg
DAILY MY Administration
Hydralazine HCl 5 mg 08/10/23 15:01 08/12/23 18:26
Hydralazine 20 Mg/Ml Vial IV 09/07/23 15:00 5 mg
Q6HPRN PRN Administration
SBP>160
Methylprednisolone Sodium 258 mls @ 258 mls/hr 08/14/23 12:00 08/14/23 12:36
Succinate 1,000 mg/ Sodium IV 08/17/23 23:59 258 mls
Chloride Q24H MY Administration
Levothyroxine Sodium 200 mcg 08/11/23 07:00 08/15/23 06:05
Levothyroxine 200 Mcg Tablet PO 09/08/23 06:59 200 mcg
DAILY AT 0700 MY Administration
Lisinopril 40 mg 08/11/23 08:00 08/15/23 07:59
Lisinopril 20 Mg Tablet PO 09/08/23 07:59 40 mg
DAILY MY Administration
Melatonin 5 mg 08/10/23 22:00 08/14/23 21:08
Melatonin 5 Mg Tablet PO 09/07/23 21:59 5 mg
HS MY Administration
Metoprolol Succinate 50 mg 08/10/23 20:00 08/15/23 07:59
Metoprolol 50 Mg Extended Release Tablet PO 09/07/23 19:59 50 mg
BID MY Administration
Pantoprazole Sodium 40 mg 08/11/23 08:00 08/15/23 07:58
Pantoprazole 40 Mg Delayed Release Tablet PO 09/08/23 07:59 40 mg
DAILY MY Administration
Rivaroxaban 20 mg 08/15/23 18:00
Rivaroxaban 20 Mg Tablet PO 09/12/23 17:59
QPM MY
Sodium Chloride 0 flush 08/10/23 17:00 08/12/23 18:28
Sodium Chloride 0.9% (Flush) Syringe IV 09/07/23 16:59 2 flush
PER PROTOCOL MY Administration
Tamsulosin HCl 0.4 mg 08/10/23 22:00 08/14/23 21:07
Tamsulosin 0.4 Mg Capsule PO 09/07/23 21:59 0.4 mg
HS MY Administration
Vitamin C/Vitamin E 1 cap 08/10/23 20:00 08/15/23 07:58
Vit C/Vit E/Lutein/Min/[place]-3 (Ocuvite) Capsule PO 09/07/23 19:59 1 cap
BID MY Administration
Home Medications
Medication Instructions Recorded
finasteride 5 mg tablet 5 mg PO HS Urinary issue 06/13/19
pantoprazole 40 mg tablet,delayed 40 mg PO DAILY Gastrointestinal 06/13/19
release issue
rivaroxaban 20 mg tablet (Xarelto) 20 mg PO QPM Blood clot 12/19/19
prevention/tx
acetaminophen 500 mg tablet 1,000 mg PO DAILYPRN PRN mild pain 08/10/23
(Tylenol Extra Strength)
atorvastatin 40 mg tablet 40 mg PO HS High Cholesterol 08/10/23
cholecalciferol (vitamin D3) 50 50 mcg PO DAILY Supplement 08/10/23
mcg (2,000 unit) tablet
cyanocobalamin (vitamin B-12) 1 tab PO HS Supplement 08/10/23
digoxin 125 mcg (0.125 mg) tablet 125 mcg PO DAILY Heart 08/10/23
Disease/Condition
furosemide 20 mg tablet 20 mg PO DAILY Fluid 08/10/23
Retention/Swelling
levothyroxine 200 mcg tablet 200 mcg PO DAILY AT 0700 Thyroid 08/10/23
lisinopril 40 mg tablet 40 mg PO DAILY Blood Pressure 08/10/23
metoprolol succinate 50 mg 50 mg PO BID Blood Pressure 08/10/23
tablet,extended release 24 hr
mupirocin 2 % topical ointment 1 applic topical BID apply to 08/10/23
forehead
peg 400-propylene glycol (PF) 0.4 2 drp BOTH EYES BIDPRN PRN dry eyes 08/10/23
%-0.3 % eye drops in a dropperette
(Systane (PF))
rimegepant 75 mg disintegrating 75 mg PO DAILYPRN PRN migraine 08/10/23
tablet (Nurtec ODT)
tamsulosin 0.4 mg capsule 0.4 mg PO HS Urinary Issue 08/10/23
vit C 250 mg-vit E 90 mg-zinc 40 1 tab PO BID Supplement 08/10/23
mg-copper 1 ql-[id number]-ltritz
capsule (PreserVision AREDS-2)
magnesium oxide 400 mg PO DAILY Supplement 08/11/23
riboflavin (vitamin B2) 100 mg 400 mg PO DAILY SUPPLEMENT 08/11/23
tablet (Vitamin B-2)
[2023-08-15 08:23] LABS: Blood Urea Nitrogen 38 mg/dl (9-20); Calcium 9.6 mg/dl (8.4-10.2); Carbon Dioxide 25 mmol/L (22-30); Chloride 104 mmol/L (98-107); Estimated Creatinine Clearance 47 ml/min; Glucose 154 mg/dl (70-99); Sodium 136 mmol/L (135-145); eGFR 47.95
[2023-08-15 08:38] LABS: Potassium 3.9 mmol/L (3.5-5.1)
--- NOTE | 2023-08-15 10:32 | PN.CDI ---
CDI
- -
CDI:
Physician Documentation Request
Admit Date: 08/10/23 15:12
Dear Neurology,
Please review the following and provide your response in the progress notes.
Clinical Indicators:
The diagnosis of edema was included in the signed 08/11 MRI.
- 08/[address] 'New areas of white matter hypoattenuation/edema within the RIGHT frontal lobe and parietal lobes. These could represent subacute infarcts with vasogenic edema'
- 08/11 Brain MRI 'Large regions of cortical sheikh matter and subcortical white matter signal abnormality in the right frontal lobe, right parietal lobe, and posterior right temporal lobe containing moderate edema'
Please indicate in your progress notes if you are in agreement that the above diagnosis is valid for this patient:
____ - Cerebral edema is a valid diagnosis (Please include it in your progress notes)
____ - Cerebral edema is not a valid diagnosis for this patient
____ - Cerebral edema is not yet confirmed but remains a suspected condition
____ - Other
Use of terms such as suspected, likely, concern for, or probable are acceptable for a diagnosis that is being evaluated, monitored or treated as if it exists and can be coded in the inpatient setting, when documented at the time of discharge.
Thank you,
Becca Humphrey RN
CDI Specialist
Please use your independent medical judgment in providing your response.
[2023-08-15] MEDS: LANOXIN 125 MCG PO (11:10)
[2023-08-15] MEDS: SOLU-MEDROL 258 MG IV (11:11)
--- NOTE | 2023-08-15 11:22 | W.PN.HOSP.TC ---
Today's Communication/Plan
-
Monitor vitals
See plan
Continue with IV steroids
Check orthostatics, teds
Leukocytosis noted, likely from steroids
Monitor renal status, check bladder scan
Hold lisinopril and and Lasix
Check urine eos
Assessment / Plan
Assessment / Plan
Physical exam:
General: Well Nourished and No Apparent Distress
HEENT: Anicteric and Moist mucous membranes
Respiratory: Clear; No Wheezes
Cardiac: S1/S2 and Irregular Rhythm
GI: Soft, Non Tender and Non Distended
Musculoskeletal: No Edema
Neuro: Awake, Alert, Oriented and AO x 3
Psych: Calm and Intact Judgment/Insight
# Change in mental status
He denies headache or confusion. He is lucid and alert, followed commands appropriately.
He had confusion. Suspect underlying inflammatory cerebral amyloid angiopathy
CT noted
MRI flare signals in the right frontal lobe right parietal lobe as well as to a lesser extent the left parietal lobe. Small amount of chronic microhemorrhage in the right frontal lobe and the right parietal lobe slightly increased burden compared to
previous MRI in February 2023.
no hx of malignancy; per patient he is good with his cancer screening
LDL 35, A1c 5.7, prediabetes
speech,PT/OT
cw neuro checks: non focal
s/p LP 08/13; follow studies; CSF with mild elevation in protein, normal WBC, glucose. Started on high-dose steroids; will need tapering steroids over 6-12 weeks weeks on dc. Patient will also need to follow-up with vascular neurologist at
[facility] outpatient
CT Chest, abdomen, pelvis: No anatomic evidence to suggest metastatic disease
Appreciate neurology input
SHIRA
Check bladder scan, hold Lasix, lisinopril
Check UA
check urine eos
did got IV contrast 08/11
If does not improve then will need nephrology evaluation
History of paroxysmal A-fib
Patient denies chest pain or palpitation.
Echo on showed LVEF 55-60%. Stage III diastolic dysfunction. Mild MR/mild to moderate TR.
Continue metoprolol, digoxin
Xarelto restarted
# History of primary hypertension
uncontrolled
added amlodipine, increased to 10mg
Continue lisinopril, metoprolol
Hydralazine as needed
dizziness; mild
check orthos
TEDS
#SSS s/p pacemaker
#hx of CT
#History of apical hypertrophic cardiomyopathy
#Restless leg syndrome
#History of GERD
PPI
#Multiple small lung nodules on past CT scan
f/u outpatient
#History of hypothyroidism
Continue with Synthroid
History of BPH
Continue with tamsulosin
# Macular degeneration with visual impairment
DVT prophylaxis
Xarelto
Full code
Total time spent to see the patient, examine the patient on the floor, review data and lab results, discuss treatment plan with patient, nursing staff around 52 minutes
Anticipated Discharge: > 48 hours
Subjective/Interval History
-
Date of Service: August 15, 2023
has some dizziness
Objective Data
-
Labs:
Laboratory Results
08/15/23
07:09
WBC 18.2 H
Hgb 12.6 L
Hct 35.9 L
Plt Count 182
Sodium 136
Potassium 3.9
Chloride 104
Carbon Dioxide 25
BUN 38 H
Creatinine 1.5 H
Glucose 154 H
Calcium 9.6
Vital Signs:
Vital Signs
Temp Pulse Resp BP Pulse Ox
97.7 F 72 18 137/80 95
08/15/23 07:41 08/15/23 11:10 08/15/23 07:41 08/15/23 07:41 08/15/23 07:41
I&O
08/14/23 08/15/23 08/16/23
06:59 06:59 06:59
Intake Total 240 / 240 1200 / 1200
Balance 240 / 240 1200 / 1200
[2023-08-15 14:49] LABS: Syphilis/T. pallidum Ab Reflex Negative (Negative)
--- NOTE | 2023-08-15 14:53 | CM ---
Reviewed chart, PT. Patient at baseline. Plan remains for home no needs.
Plan: Case management will continue to follow and assist with discharge planning. Patient would like to return home when medically cleared.
[2023-08-15 15:00] VITALS: BP 123/71
[2023-08-15 16:44] LABS: Body Fluid for Eosinophils No Eosinophils seen
[2023-08-15] MEDS: XARELTO 20 MG PO (17:16)
[2023-08-15] MEDS: MELATONIN 5 MG PO (21:00)
[2023-08-15] MEDS: VITAMIN B-12 1000 MCG PO (21:00)
[2023-08-15] MEDS: FLOMAX 0.400000000000000022 MG PO (21:00)
[2023-08-15] MEDS: PROSCAR 5 MG PO (21:00)
[2023-08-15] MEDS: LIPITOR 40 MG PO (21:00)
[2023-08-15 21:05] VITALS: BP 139/76
[2023-08-15 23:03] LABS: Urine Albumin Negative (Neg - Trace); Urine Bilirubin Negative (Negative); Urine Character Clear (Clear); Urine Color Yellow; Urine Glucose Negative (Negative); Urine Ketone Negative (Negative); Urine Leukocyte Negative (Negative); Urine Nitrite Negative (Negative); Urine Occult Blood Negative (Negative); Urine Specific Gravity 1.015 (<1.030); Urine Urobilinogen Negative (Neg - 1+)
[2023-08-15 23:38] VITALS: BP 137/79; BP 142/82; BP 155/79; PULSE 72; PULSE 73; PULSE 75
[2023-08-16 06:00] VITALS: BMI 27.8
[2023-08-16] MEDS: SYNTHROID 200 MCG PO (06:13)
[2023-08-16 06:33] LABS: % Basophils 0.1 % (0-2); % Immature Granulocytes 0.6 % (0-0.5); % Lymphocytes 4.6 % (20.5-51.1); % Monocytes 2.7 % (1.7-9.3); Absolute Immature Granulocytes 0.1 10^3/uL (0-0.05); Absolute Lymphocytes 0.6 10^3/uL (1.2-3.4); Absolute Monocytes 0.4 10^3/uL (0.1-0.6); Absolute Neutrophils 12.3 10^3/uL (1.4-6.5); Hematocrit 34.3 % (39.0-52.0); Hemoglobin 11.9 g/dL (13.0-18.0); Mean Corp Hgb Conc. 34.7 g/dL (33.0-37.0); Mean Corpuscular Hgb 28.9 pg (27.0-31.0); Mean Corpuscular Volume 83.3 fL (80.0-94.0); Mean Platelet Volume 11.2 fL (7.4-10.4); Nucleated Red Blood Cells % 0 % (-); Platelet Count 170 10^3/uL (130-400); Red Blood Cell Count 4.12 10^6/uL (4.70-6.10); Red Cell Dist. Width 13.8 % (11.5-14.5); White Blood Cell Count 13.4 10^3/uL (4.8-10.8)
[2023-08-16 06:40] LABS: Blood Urea Nitrogen 45 mg/dl (9-20); Calcium 9.5 mg/dl (8.4-10.2); Carbon Dioxide 27 mmol/L (22-30); Chloride 105 mmol/L (98-107); Estimated Creatinine Clearance 51 ml/min; Glucose 172 mg/dl (70-99); Potassium 4.1 mmol/L (3.5-5.1); Sodium 138 mmol/L (135-145); eGFR 52.09
[2023-08-16 07:36] VITALS: BP 132/76
[2023-08-16] MEDS: PROTONIX 40 MG PO (08:00)
[2023-08-16] MEDS: TOPROL XL 50 MG PO ×2 (08:00→20:55)
[2023-08-16] MEDS: NORVASC 10 MG PO (08:00)
--- NOTE | 2023-08-16 08:00 | W.PN.NEURO.1 ---
Today's Communication / Plan
-
-Day 4/5 of high dose IV steroids
-Neurologic checks
-Continue Xarelto
-Plan to finish IV steroids tomorrow morning and start daily PO Prednisone 50 mg on 08/17, maintaining this for 1-2 months before consideration of decreasing dose and repeating brain MRI in 2-3 months
-Gave names and contacts for [place] [facility] for second opinion
-Defer to primary team for chest pain workup
Will follow
Neuro Assessment/Plan
Assessment
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
behavioral changes which would be common manifestations of the disorder.� Patient has no history of cancer and is a non-smoker, and does not have any other obvious manifestations of an autoimmune disease such as rheumatologic disease or vasculitis.
CT chest/abdomen/pelvis showed no evidence of no anatomic evidence to suggest metastatic disease. Vascular imaging negative for vasculitis. CSF findings as below. ESR/CRP checked again and were normal. EEG 08/14/23 unremarkable.
Subjective/Objective
Subjective Data
Date of Service: August 16, 2023
No acute events overnight, denies headache, has had chest pain for about 5-10 minutes this morning, no dyspnea, non radiating, no back pain, no nausea, abdominal pain or diarrhea or vomiting
Objective Data
Vital Signs
Temp Pulse Resp BP Pulse Ox
97.6 F 67 16 132/76 98
08/16/23 07:36 08/16/23 07:36 08/16/23 07:36 08/16/23 07:36 08/16/23 07:36
Lab Results
08/16/23 06:11
08/16/23 06:11
PT 13.8 Sec (11.4-14.6) 08/13/23 10:10
INR 1.07 08/13/23 10:10
Sodium 138 mmol/L (135-145) 08/16/23 06:11
Potassium 4.1 mmol/L (3.5-5.1) 08/16/23 06:11
BUN 45 mg/dl (9-20) H 08/16/23 06:11
Glucose 172 mg/dl (70-99) H 08/16/23 06:11
Calcium 9.5 mg/dl (8.4-10.2) 08/16/23 06:11
LDL Cholesterol, Calc 35 mg/dl 08/11/23 06:11
Patient Allergies
adhesive tape Allergy (Verified 08/10/23 10:56)
Rash
hydrochlorothiazide Allergy (Verified 08/10/23 17:59)
Rash
Review of Systems
-
History Source: Patient
All other systems: Reviewed and negative
Constitutional: No Symptoms
EENT: No Symptoms Reported
Respiratory: Negative Trouble Breathing
Cardiac: Chest Pain; Negative Diaphoresis, Palpitations or Syncope
Abdomen/GI: No Symptoms
Genitourinary: No Symptoms
Musculoskeletal: No Symptoms
Skin: No Symptoms
Neuro: Speech Problem and See existing Neuro Note
Endocrine: No Symptoms
Hematologic / Lymphatic: No Symptoms
Physical Exam
-
General: No Apparent Distress and Comfortable
Eyes: No Ptosis
HEENT: Normocephalic
Neck: No Bruits Bilaterally
Respiratory: Clear to Auscultation
Cardiac: Regular Rhythm
GI: Normal Bowel Sounds
Skin: Unremarkable
Extremities: No Clubbing
Psych: Intact Judgement/Insight; Negative Confused
Extended Neurological Exam
Mood & Affect: Mood Unremarkable and Affect Unremarkable
Attention Span & Concentration: Other (Fully awake and alert, conversational, recites months of the year slowly but accurately)
Memory: Able to Recall
Tremor: Hand Tremor Absent
Involuntary Movement: None
Speech: Quality Unremarkable and Quantity Unremarkable; Negative Expressive Aphasia, Receptive Aphasia or Dysarthric
Cranial Nerve II: Left Eye: Pupillary Reactivity Unremarkable, Pupillary Size Unremarkable and Visual George Intact
Cranial Nerve II: Right Eye: Pupillary Reactivity Unremarkable, Pupillary Size Unremarkable and Visual George Intact
Cranial Nerves III, IV, : Extraocular Movement: Extraocular Movement Full in all Directions
Cranial Nerve VII: Facial Symmetry: Normal Facial Symmetry
Cranial Nerve XI: Shoulder Shrug: Unremarkable
Muscle Strength, Overall: Full Throughout
Pronator Drift: No Drift in Upper Extremities
Data Reviewed
-
MRI Head: Report Reviewed and Image Reviewed
Echocardiogram: Report Reviewed
Labs: Report Reviewed
[2023-08-16] MEDS: OCUVITE SOFTGEL 1 CAP PO ×2 (08:01→20:55)
[2023-08-16] MEDS: VITAMIN D3 (cholecalciferol) 50 MCG PO (08:01)
[2023-08-16 10:13] LABS: Troponin I 0.023 ng/ml
[2023-08-16 11:12] VITALS: BP 153/88
--- NOTE | 2023-08-16 11:45 | W.PN.HOSP.TC ---
Today's Communication/Plan
-
Monitor vital signs and see plan
Monitor creatinine
Troponin much lower than prior, EKG with some PVCs
Continue with steroids
Continue to hold lisinopril
Assessment / Plan
Assessment / Plan
Physical exam:
General: Well Nourished and No Apparent Distress
HEENT: Anicteric and Moist mucous membranes
Respiratory: Clear; No Wheezes
Cardiac: S1/S2 and Irregular Rhythm
GI: Soft, Non Tender and Non Distended
Musculoskeletal: No Edema
Neuro: Awake, Alert, Oriented and AO x 3
Psych: Calm and Intact Judgment/Insight
# Change in mental status
He denies headache or confusion. He is lucid and alert, followed commands appropriately.
He had confusion. Suspect underlying inflammatory cerebral amyloid angiopathy
CT noted
MRI flare signals in the right frontal lobe right parietal lobe as well as to a lesser extent the left parietal lobe. Small amount of chronic microhemorrhage in the right frontal lobe and the right parietal lobe slightly increased burden compared to
previous MRI in February 2023.
no hx of malignancy; per patient he is good with his cancer screening
LDL 35, A1c 5.7, prediabetes
speech,PT/OT
cw neuro checks: non focal
s/p LP 08/13; follow studies; CSF with mild elevation in protein, normal WBC, glucose. Started on high-dose steroids; will need tapering steroids over 6-12 weeks weeks on dc. Patient will also need to follow-up with vascular neurologist at
[place] outpatient
CT Chest, abdomen, pelvis: No anatomic evidence to suggest metastatic disease
Appreciate neurology input
SHIRA
Check bladder scan, hold Lasix, lisinopril
Check UA wnl
check urine eos neg
did got IV contrast 08/11; suspect could be 2/2 contrast
If does not improve then will need nephrology evaluation
History of paroxysmal A-fib
Patient denies chest pain or palpitation.
Echo on showed LVEF 55-60%. Stage III diastolic dysfunction. Mild MR/mild to moderate TR.
Continue metoprolol, digoxin
Xarelto restarted
# History of primary hypertension
uncontrolled
added amlodipine, increased to 10mg
Continue metoprolol; holding lisinopril
Hydralazine as needed
dizziness; mild
improved
check orthos neg
TEDS
#SSS s/p pacemaker
#hx of DE
mild chest discomfort 08/16; EKG nonischemic. some PVC
trop much lower than prior
echo with stage 3 diastolic dysfunction. No significant change
#History of apical hypertrophic cardiomyopathy
#Restless leg syndrome
#History of GERD
PPI
#Multiple small lung nodules on past CT scan
f/u outpatient
#History of hypothyroidism
Continue with Synthroid
History of BPH
Continue with tamsulosin
# Macular degeneration with visual impairment
DVT prophylaxis
Xarelto
Full code
Total time spent to see the patient, examine the patient on the floor, review data and lab results, discuss treatment plan with patient, nursing staff around 53 minutes
Anticipated Discharge: Within 24 hours
Subjective/Interval History
-
Date of Service: August 16, 2023
had some chest discomfort
Objective Data
-
Labs:
Laboratory Results
08/16/23
06:11
WBC 13.4 H
Hgb 11.9 L
Hct 34.3 L
Plt Count 170
Sodium 138
Potassium 4.1
Chloride 105
Carbon Dioxide 27
BUN 45 H
Creatinine 1.4 H
Glucose 172 H
Calcium 9.5
Vital Signs:
Vital Signs
Temp Pulse Resp BP Pulse Ox
97.8 F 61 17 153/88 98
08/16/23 11:12 08/16/23 11:12 08/16/23 11:12 08/16/23 11:12 08/16/23 11:12
I&O
08/15/23 08/16/23 08/17/23
06:59 06:59 06:59
Intake Total 1200 / 1200 800 / 800
Balance 1200 / 1200 800 / 800
[2023-08-16] MEDS: LANOXIN 125 MCG PO (12:41)
[2023-08-16] MEDS: SOLU-MEDROL 258 MG IV (12:41)
[2023-08-16 15:25] VITALS: BP 141/78
[2023-08-16] MEDS: XARELTO 20 MG PO (18:18)
[2023-08-16 19:09] LABS: Myelin Basic Protein, CSF 1.92 ng/mL (0.00-5.50)
[2023-08-16 20:00] VITALS: BP 156/88
[2023-08-16] MEDS: TYLENOL 650 MG PO (20:56)
[2023-08-16] MEDS: FLOMAX 0.400000000000000022 MG PO (21:00)
[2023-08-16] MEDS: MELATONIN 5 MG PO (21:00)
[2023-08-16] MEDS: PROSCAR 5 MG PO (21:00)
[2023-08-16] MEDS: VITAMIN B-12 1000 MCG PO (21:00)
[2023-08-16] MEDS: LIPITOR 40 MG PO (21:00)
[2023-08-16 23:13] VITALS: BP 147/74
[2023-08-17 01:12] LABS: Paraneoplastic Ab IgG, CSF None Detected (None Detected)
[2023-08-17 03:42] VITALS: BP 144/80
[2023-08-17 03:48] VITALS: BMI 27.9
[2023-08-17] MEDS: SYNTHROID 200 MCG PO (06:00)
[2023-08-17 06:42] LABS: % Immature Granulocytes 0.9 % (0-0.5); % Lymphocytes 4.9 % (20.5-51.1); % Monocytes 3.8 % (1.7-9.3); % Neutrophils 90.4 % (42.2-75.2); Absolute Immature Granulocytes 0.1 10^3/uL (0-0.05); Absolute Lymphocytes 0.4 10^3/uL (1.2-3.4); Absolute Monocytes 0.3 10^3/uL (0.1-0.6); Hematocrit 34.1 % (39.0-52.0); Hemoglobin 11.8 g/dL (13.0-18.0); Mean Corp Hgb Conc. 34.6 g/dL (33.0-37.0); Mean Corpuscular Hgb 29.1 pg (27.0-31.0); Mean Platelet Volume 11.7 fL (7.4-10.4); Nucleated Red Blood Cells % 0 % (-); Platelet Count 147 10^3/uL (130-400); Red Blood Cell Count 4.06 10^6/uL (4.70-6.10); Red Cell Dist. Width 13.6 % (11.5-14.5); White Blood Cell Count 8.9 10^3/uL (4.8-10.8)
[2023-08-17 07:00] VITALS: BP 157/91
[2023-08-17 07:08] LABS: Blood Urea Nitrogen 36 mg/dl (9-20); Calcium 9.4 mg/dl (8.4-10.2); Carbon Dioxide 28 mmol/L (22-30); Chloride 101 mmol/L (98-107); Estimated Creatinine Clearance 65 ml/min; Glucose 206 mg/dl (70-99); Potassium 4.1 mmol/L (3.5-5.1); Sodium 138 mmol/L (135-145); eGFR > 60.00
[2023-08-17] MEDS: OCUVITE SOFTGEL 1 CAP PO (08:06)
[2023-08-17] MEDS: TOPROL XL 50 MG PO (08:06)
[2023-08-17] MEDS: NORVASC 10 MG PO (08:07)
[2023-08-17] MEDS: VITAMIN D3 (cholecalciferol) 50 MCG PO (08:07)
[2023-08-17] MEDS: PROTONIX 40 MG PO (08:07)
--- NOTE | 2023-08-17 08:15 | W.PN.NEURO.1 ---
Today's Communication / Plan
-
-Finishing IV steroids day 5 today
-Start 50 mg daily Prednisone tomorrow
-Discussed possible side effects of steroids and when to call office or seek medical attention
-Follow up in neurology office 4 weeks, plan for MRI brain in 2 months and then consideration for decreasing Prednisone dose
-Treating hypertension
No barriers to discharge from my standpoint, call with questions and concerns
Neuro Assessment/Plan
Assessment
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
behavioral changes which would be common manifestations of the disorder.� Patient has no history of cancer and is a non-smoker, and does not have any other obvious manifestations of an autoimmune disease such as rheumatologic disease or vasculitis.
CT chest/abdomen/pelvis showed no evidence of no anatomic evidence to suggest metastatic disease. Vascular imaging negative for vasculitis. CSF findings as below. ESR/CRP checked again and were normal. EEG 08/14/23 unremarkable.
Subjective/Objective
Subjective Data
Date of Service: August 17, 2023
No acute events, some diarrhea he associates with steroids, headaches maybe a little improved, not noticing any mood changes
Objective Data
Vital Signs
Temp Pulse Resp BP Pulse Ox
97.7 F 63 14 144/80 96
08/17/23 03:42 08/17/23 03:42 08/17/23 03:42 08/17/23 03:42 08/17/23 03:42
Lab Results
08/17/23 06:23
08/17/23 06:23
PT 13.8 Sec (11.4-14.6) 08/13/23 10:10
INR 1.07 08/13/23 10:10
Sodium 138 mmol/L (135-145) 08/17/23 06:23
Potassium 4.1 mmol/L (3.5-5.1) 08/17/23 06:23
BUN 36 mg/dl (9-20) H 08/17/23 06:23
Glucose 206 mg/dl (70-99) H 08/17/23 06:23
Calcium 9.4 mg/dl (8.4-10.2) 08/17/23 06:23
LDL Cholesterol, Calc 35 mg/dl 08/11/23 06:11
Patient Allergies
adhesive tape Allergy (Verified 08/10/23 10:56)
Rash
hydrochlorothiazide Allergy (Verified 08/10/23 17:59)
Rash
Review of Systems
-
History Source: Patient
All other systems: Reviewed and negative
Constitutional: No Symptoms
EENT: No Symptoms Reported
Respiratory: No Symptoms
Cardiac: No Symptoms
Abdomen/GI: No Symptoms
Genitourinary: No Symptoms
Musculoskeletal: No Symptoms
Skin: No Symptoms
Neuro: No Symptoms
Endocrine: No Symptoms
Hematologic / Lymphatic: No Symptoms
Allergy / Immunology: No Symptoms
Physical Exam
-
General: Comfortable
Eyes: No Ptosis
HEENT: Normocephalic
Neck: No Bruits Bilaterally
Respiratory: Clear to Auscultation
Cardiac: Regular Rhythm
GI: Normal Bowel Sounds
Skin: Unremarkable
Extremities: No Clubbing
Psych: Unremarkable
Extended Neurological Exam
Mood & Affect: Mood Unremarkable and Affect Unremarkable
Attention Span & Concentration: Awake, Alert and Interactive
Memory: Unremarkable
Tremor: Hand Tremor Absent
Involuntary Movement: None
Speech: Quality Unremarkable and Quantity Unremarkable; Negative Expressive Aphasia, Receptive Aphasia or Dysarthric
Cranial Nerve II: Left Eye: Pupillary Reactivity Unremarkable and Pupillary Size Unremarkable
Cranial Nerve II: Right Eye: Pupillary Reactivity Unremarkable and Pupillary Size Unremarkable
Cranial Nerves III, IV, : Extraocular Movement: Extraocular Movement Full in all Directions
Cranial Nerve VII: Facial Symmetry: Normal Facial Symmetry
Muscle Strength, Overall: Full Throughout
Muscle Bulk & Tone: Bulk Unremarkable
Pronator Drift: No Drift in Upper Extremities
Deep Tendon Reflexes: Trace Throughout
Vibration Sensation: Unremarkable
Touch Sensation: Unremarkable
Coordination: [id number] Testing Unremarkable
Babinski Sign: Absent Bilaterally
Data Reviewed
-
CT Head: Report Reviewed and Image Reviewed
MRI Head: Report Reviewed and Image Reviewed
Labs: Report Reviewed
[2023-08-17] MEDS: SOLU-MEDROL 258 MG IV (10:04)
[2023-08-17 10:42] VITALS: BP 156/88
--- NOTE | 2023-08-17 10:54 | W.PN.HOSP.TC ---
Today's Communication/Plan
-
Monitor vital signs and see plan
Last dose of IV steroids today
Spoke with neurology, will discharge on 50 mg prednisone
Restart lisinopril
Spouse updated over the phone
Time of discharge 36 minutes
Assessment / Plan
Assessment / Plan
Physical exam:
General: Well Nourished and No Apparent Distress
HEENT: Anicteric and Moist mucous membranes
Respiratory: Clear; No Wheezes
Cardiac: S1/S2 and Irregular Rhythm
GI: Soft, Non Tender and Non Distended
Musculoskeletal: No Edema
Neuro: Awake, Alert, Oriented and AO x 3
Psych: Calm and Intact Judgment/Insight
# Change in mental status
He denies headache or confusion. He is lucid and alert, followed commands appropriately.
He had confusion. Suspect underlying inflammatory cerebral amyloid angiopathy
CT noted
MRI flare signals in the right frontal lobe right parietal lobe as well as to a lesser extent the left parietal lobe. Small amount of chronic microhemorrhage in the right frontal lobe and the right parietal lobe slightly increased burden compared to
previous MRI in February 2023.
no hx of malignancy; per patient he is good with his cancer screening
LDL 35, A1c 5.7, prediabetes
speech,PT/OT
cw neuro checks: non focal
s/p LP 08/13; follow studies; CSF with mild elevation in protein, normal WBC, glucose. Started on high-dose steroids; last day today; spoke with neurology. Will discharge on 50 mg prednisone neurology will see patient outpatient. will need tapering
steroids over 6-12 weeks weeks on dc. Patient will also need to follow-up with vascular neurologist at [place] outpatient
CT Chest, abdomen, pelvis: No anatomic evidence to suggest metastatic disease
Appreciate neurology input
SHIRA
resolved; restart lisinopril
lisinopril
Check UA wnl
check urine eos neg
did got IV contrast 08/11; suspect could be 2/2 contrast
If does not improve then will need nephrology evaluation
History of paroxysmal A-fib
Patient denies chest pain or palpitation.
Echo on showed LVEF 55-60%. Stage III diastolic dysfunction. Mild MR/mild to moderate TR.
Continue metoprolol, digoxin
Xarelto restarted
# History of primary hypertension
uncontrolled
added amlodipine, increased to 10mg
Continue metoprolol; holding lisinopril
Hydralazine as needed
dizziness; mild
improved
check orthos neg
TEDS
#SSS s/p pacemaker
#hx of DE
mild chest discomfort 08/16; EKG nonischemic. some PVC
trop much lower than prior
echo with stage 3 diastolic dysfunction. No significant change
#History of apical hypertrophic cardiomyopathy
#Restless leg syndrome
#History of GERD
PPI
#Multiple small lung nodules on past CT scan
f/u outpatient
#History of hypothyroidism
Continue with Synthroid
History of BPH
Continue with tamsulosin
# Macular degeneration with visual impairment
DVT prophylaxis
Xarelto
Full code
Anticipated Discharge: Today
Subjective/Interval History
-
Date of Service: August 17, 2023
denies pain
Objective Data
-
Labs:
Laboratory Results
08/17/23
06:23
WBC 8.9
Hgb 11.8 L
Hct 34.1 L
Plt Count 147
Sodium 138
Potassium 4.1
Chloride 101
Carbon Dioxide 28
BUN 36 H
Creatinine 1.1
Glucose 206 H
Calcium 9.4
Vital Signs:
Vital Signs
Temp Pulse Resp BP Pulse Ox
97.7 F 61 18 156/88 98
08/17/23 10:42 08/17/23 10:42 08/17/23 10:42 08/17/23 10:42 08/17/23 10:42
I&O
08/16/23 08/17/23 08/18/23
06:59 06:59 06:59
Intake Total 800 / 800 720 / 720
Balance 800 / 800 720 / 720
--- NOTE | 2023-08-17 10:57 | W.DCSUMMARY ---
Discharge Summary
Discharge Data
Date of Admission: 08/10/23
Date of Discharge: 08/17/23
-
Pending Results: Yes
Hospital Course
77-year-old male with past medical history of migraine, paroxysmal atrial fibrillation, hypertension, sick sinus syndrome status post pacemaker, [place], apical hypertrophic cardiomyopathy, GERD, small lung nodule, hypothyroidism, BPH, macular
degeneration came to the hospital with change in mental status. MRI was done which showed right frontal lobe, right parietal lobe as well as lesser extent of the left parietal lobe white matter signal abnormality with moderate edema. Findings were
consistent with likely acute inflammatory cerebral amyloid angiopathy. Patient also had an LP done which did not appear as infectious etiology. Patient was seen by neurology throughout hospitalization and was started on high-dose IV steroids for
total of 5 days. Patient's symptoms continue to improve. Neurology also instructed patient to follow-up with vascular neurology at [facility] for second opinion. On discharge patient steroid was transitioned to 50 mg daily prednisone.
Initially there was some concern regarding malignancy however patient [place] CT did not show any evidence of metastatic disease. While patient was in the hospital his blood pressure was also high so he was started on amlodipine. In the hospital he
also developed acute kidney injury which was likely thought was secondary to contrast. His creatinine over time improved. Once his symptoms were improving, he was then discharged home on oral steroids with instructions to follow-up with all his
physicians outpatient.
Discharge Plan
-
Patient Disposition: Home (Routine Discharge)
Discharge Diagnosis/Procedures: Probable inflammatory cerebral amyloid angiopathy
Acute kidney injury
Diet: As tolerated
Activity: As tolerated
Driving Restrictions: As prior to admission
Bathing Restrictions: None
Referrals:
Ricardo Rodriguez MD [Active] - in three to four weeks
Kiran Valderrama DO [Family Provider] - in less than 1 week
Prescriptions:
New
amlodipine 10 mg Tablet
10 mg PO DAILY Qty: 30 0RF
prednisone 50 mg tablet
50 mg PO DAILY Qty: 30 0RF
Continued
pantoprazole 40 MG tablet,delayed release (DR/EC)
40 mg PO DAILY
finasteride 5 MG tablet
5 mg PO HS
Xarelto 20 MG tablet
20 mg PO QPM
atorvastatin 40 mg Tablet
40 mg PO HS
metoprolol succinate 50 mg Tablet Extended Release 24 Hr
50 mg PO BID
tamsulosin 0.4 mg Capsule
0.4 mg PO HS
levothyroxine 200 mcg Tablet
200 mcg PO DAILY AT 0700
mupirocin 2 % Ointment
1 applic TOPICAL BID
digoxin 125 mcg (0.125 mg) Tablet
125 mcg PO DAILY
furosemide 20 mg Tablet
20 mg PO DAILY
lisinopril 40 mg Tablet
40 mg PO DAILY
Systane (PF) 0.4-0.3 % Dropperette
2 drp BOTH EYES BIDPRN PRN (Reason: dry eyes)
cholecalciferol (vitamin D3) 50 mcg (2,000 unit) Tablet
50 mcg PO DAILY
PreserVision AREDS-2 250-90-40-1 mg Capsule
1 tab PO BID
Nurtec ODT 75 mg Tablet,Disintegrating
75 mg PO DAILYPRN PRN (Reason: migraine)
Patient Comments:
08/10/2023, per pt., gets samples from their PCP.
cyanocobalamin (vitamin B-12)
1 tab PO HS
acetaminophen [Tylenol Extra Strength] 500 mg Tablet
1,000 mg PO DAILYPRN PRN (Reason: mild pain)
riboflavin (vitamin B2) [Vitamin B-2] 100 mg Tablet
400 mg PO DAILY
magnesium oxide 400 mg magnesium Tablet
400 mg PO DAILY
Discharge Orders:
Discharge Patient (As Directed); Ordered 08/17/23
Ordered By: Familia Jean
[2023-08-17] MEDS: LANOXIN 125 MCG PO (11:30)
--- NOTE | 2023-08-17 12:55 | CM ---
IMM provided to patient and placed on chart.
Plan: Case management will continue to follow and assist with discharge planning. Patient will return home with his .
== END 2023-08-17 15:36 | disposition home or self-care (01) | DRG 545 ==
LOC: 3 WEST ACU 15:12
PROVIDERS: Internal Medicine; Nurse Practitioner; Psychiatry & Neurology Neurology; Radiology Diagnostic Radiology; ADMITTING PHYSICIAN Internal Medicine; CONSULT PHYSICIAN Student in an Organized Health Care Education/Training Program; EMERGENCY PHYSICIAN Emergency Medicine; FAMILY PHYSICIAN Family Medicine
PROC: 009U3ZX Drainage of Spinal Canal, Percutaneous Approach, Diagnostic (ICD-10-PCS; 2023-08-13)
PROC: B01B1ZZ Fluoroscopy of Spinal Cord using Low Osmolar Contrast (ICD-10-PCS; 2023-08-13)
DX: E85.4 Organ-limited amyloidosis (principal); G93.6 Cerebral edema; I63.9 Cerebral infarction, unspecified; N17.9 Acute kidney failure, unspecified; I42.2 Other hypertrophic cardiomyopathy; I68.0 Cerebral amyloid angiopathy; Z79.01 Long term (current) use of anticoagulants; I49.5 Sick sinus syndrome; G25.81 Restless legs syndrome
CPT/HCPCS: 62328; 70450; 70544; 70548; 70553; 71260; 74177; 80048; 80053; 80061; 80162; 81003; 81099; 82945; 83036; 83516; 83873; 84157; 84484; 85025; 85027; 85610; 85652; 86038; 86140; 86255; 86780; 87015; 87070; 87205; 87389; 87483; 88108; 89051; 92523; 92610; 93005; 93306; 95813; 97162; 97166; 99285; A9585; Q9967

== ENCOUNTER → 2023-10-21 08:20 | Outpatient (REF) | payer MEDICARE, OTHER, SELFPAY | LOC: RAD 08:20 | PROVIDERS: ATTENDING PHYSICIAN Student in an Organized Health Care Education/Training Program; FAMILY PHYSICIAN Family Medicine | DX: R26.89 Other abnormalities of gait and mobility (principal) | CPT/HCPCS: 70450 ==

== ENCOUNTER → 2023-11-10 13:46 | Outpatient (REF) | payer MEDICARE, OTHER, SELFPAY | LOC: MRI 13:46 | PROVIDERS: ATTENDING PHYSICIAN Student in an Organized Health Care Education/Training Program; FAMILY PHYSICIAN Family Medicine | DX: I68.0 Cerebral amyloid angiopathy (principal) | CPT/HCPCS: 70553 ==

== ENCOUNTER → 2024-02-15 14:08 | Outpatient (REF) | payer MEDICARE, OTHER, SELFPAY | LOC: MRI 14:08 | PROVIDERS: ATTENDING PHYSICIAN Nurse Practitioner Adult Health; FAMILY PHYSICIAN Family Medicine | DX: I68.0 Cerebral amyloid angiopathy (principal) | CPT/HCPCS: 72148 ==

== ENCOUNTER → 2024-02-29 14:03 | Outpatient (REF) | payer MEDICARE, OTHER, SELFPAY | LOC: MRI 14:03 | PROVIDERS: ATTENDING PHYSICIAN Nurse Practitioner Adult Health | DX: I68.0 Cerebral amyloid angiopathy (principal) | CPT/HCPCS: 70551 ==

== ENCOUNTER → 2024-09-11 13:50 | Outpatient (REF) | payer MEDICARE, OTHER, SELFPAY | LOC: MRI 13:50 | PROVIDERS: ATTENDING PHYSICIAN Neuromusculoskeletal Medicine, Sports Medicine; FAMILY PHYSICIAN Family Medicine | DX: E85.4 Organ-limited amyloidosis (principal); I68.0 Cerebral amyloid angiopathy | CPT/HCPCS: 70553; 76014; 76015; A9575 ==

== ENCOUNTER → 2025-01-09 13:32 | Outpatient (REF) | payer MEDICARE, OTHER, SELFPAY | LOC: MRI 13:32 | PROVIDERS: ATTENDING PHYSICIAN Neuromusculoskeletal Medicine, Sports Medicine | DX: E85.4 Organ-limited amyloidosis (principal); I68.0 Cerebral amyloid angiopathy | CPT/HCPCS: 70553; 76014; 76015; A9575 ==